=== PATIENT | female | born 1965 | race African-American/Black ===

== ENCOUNTER 2017-01-09 08:04 | Emergency (ER) | payer OTHER, BC ==
[2017-01-09] MEDS ORDERED: LORazepam 2 MG/ML SDV VIAL ONE (08:13)
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
[2017-01-09] MEDS ORDERED: morphine CARPU-JECT 10 MG/1 ML DISP.SYRIN ONE (08:24)
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
[2017-01-09 08:33] VITALS: TEMP 97; BMI 29.0
[2017-01-09] MEDS ORDERED: morphine CARPU-JECT 10 MG/1 ML DISP.SYRIN IVPUSH ONE ×2 (08:47→09:29)
[2017-01-09] MEDS: LORAZEPAM CARPU-JECT 2 MG/ML DISP.SYRIN IVPUSH ONE ×2 (08:50→10:42)
[2017-01-09 09:16] LABS: BASOPHIL 1.2 % (0-2.0); EOSINOPHIL 3.1 % (0-4.5); MCH 30.6 pg (25.7-33.7); MEAN CELL VOLUME 89.9 fl (80-96); MEAN PLT VOLUME 9.4 fl (7.5-11.1); PLATELET COUNT 248 K/MM3 (134-434); RDW 13.5 % (11.6-15.6); WHITE BLOOD COUNT 6.3 K/mm3 (4.0-10.0)
[2017-01-09 09:22] LABS: ALBUMIN 3.7 g/dl (3.4-5.0); ANION GAP 13 (8-16); BILIRUBIN,TOTAL 0.5 mg/dL (0.2-1.0); CALCIUM 9.4 mg/dL (8.5-10.1); CO2 24 mmol/L (21-32); CREATININE 0.8 mg/dL (0.55-1.02); GLUCOSE,RANDOM 99 mg/dL (74-106); SGOT/AST 14 U/L (15-37); SGPT/ALT 17 U/L (12-78); TOT PROT 7.3 g/dl (6.4-8.2)
[2017-01-09 09:24] LABS: ALK PHOS 114 U/L (45-117); TROPONIN I < 0.02 ng/ml (0.00-0.05)
[2017-01-09 09:35] LABS: INR 1.12 (0.82-1.09); PROTHROMBIN TIME (PATIENT) 12.4 SEC (9.98-11.88)
[2017-01-09] MEDS ORDERED: LORAZEPAM CARPU-JECT 2 MG/ML DISP.SYRIN IM ONE (10:44)
[2017-01-09 10:49] VITALS: BP 139/99; PULSE 88
[2017-01-09] MEDS ORDERED: morphine CARPU-JECT 4 MG/1 ML DISP.SYRIN IVPUSH ONE (10:49)
[2017-01-09 10:53] LABS: URINE APPEARANCE CLEAR; URINE BILIRUBIN NEGATIVE (NEGATIVE); URINE BLOOD NEGATIVE (NEGATIVE); URINE COLOR COLORLESS; URINE GLUCOSE (UA) NEGATIVE (NEGATIVE); URINE KETONE NEGATIVE (NEGATIVE); URINE LEUK ESTERASE NEGATIVE (NEGATIVE); URINE NITRITE NEGATIVE (NEGATIVE); URINE PROTEIN NEGATIVE (NEGATIVE); URINE UROBILINOGEN NEGATIVE E.U./dl (0.2-1.0)
[2017-01-09] MEDS ORDERED: morphine CARPU-JECT 4 MG/1 ML DISP.SYRIN ONE (10:53)
--- NOTE | 2017-01-10 14:19 | EKG ---
Test Reason : Blood Pressure : / mmHG Vent. Rate : 099 BPM Atrial Rate : 099 BPM P-R Int : 132 ms QRS Dur : 080 ms QT Int : 366 ms P-R-T Axes : 059 -02 006 degrees QTc Int : 469 ms NORMAL SINUS RHYTHM NONSPECIFIC T WAVE ABNORMALITY ABNORMAL ECG WHEN COMPARED WITH ECG OF 28-NOV-2015 13:54, T WAVE VARIATION Confirmed by MARTIN SPENCE MD ([id number]) on 01/10/2017 2:19:19 PM Referred By: Confirmed By:MARTIN SPENCE MD
== END 2017-01-09 12:01 | disposition home or self-care (01) ==
LOC: JER 08:04
PROC: 3E033NZ Introduction of Analgesics, Hypnotics, Sedatives into Peripheral Vein, Percutaneous Approach (ICD-10-PCS; principal; 2017-01-09)
PROC: 3E023NZ Introduction of Analgesics, Hypnotics, Sedatives into Muscle, Percutaneous Approach (ICD-10-PCS; 2017-01-09)
DX: M62.838 Other muscle spasm (principal); T14.8 Other injury of unspecified body region; V43.62XA Car passenger injured in collision with other type car in traffic accident, initial encounter; Y93.89 Activity, other specified; Y92.410 Unspecified street and highway as the place of occurrence of the external cause; Z85.3 Personal history of malignant neoplasm of breast; F41.9 Anxiety disorder, unspecified; G89.29 Other chronic pain; Z87.891 Personal history of nicotine dependence
CPT/HCPCS: 36415; 70450-TC; 71260-TC; 72125-TC; 73030-TC-RT; 74177-TC; 80053; 81003; 82550; 82553; 84484; 84703; 85025; 85610; 86850; 86900; 86901; 93005; 93010; 99284-25

== ENCOUNTER 2017-06-08 09:19 | Inpatient (IN) | payer OTHER ==
[2017-06-08 09:25] VITALS: BMI 29.7
[2017-06-08 09:51] LABS: BASOPHIL 1.2 % (0-2.0); EOSINOPHIL 2.1 % (0-4.5); MCH 29.6 pg (25.7-33.7); MCHC 33.2 g/dl (32.0-36.0); MEAN CELL VOLUME 89.1 fl (80-96); NEUTROPHILS 45.9 % (42.8-82.8); PLATELET COUNT 347 K/MM3 (134-434); RDW 14.3 % (11.6-15.6); WHITE BLOOD COUNT 10.9 K/mm3 (4.0-10.0)
[2017-06-08] MEDS ORDERED: morphine SULFATE 4 MG/ML VIAL IVPUSH ONE (10:04)
[2017-06-08] MEDS ORDERED: morphine CARPU-JECT 10 MG/1 ML DISP.SYRIN ONE (10:05)
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
[2017-06-08] MEDS ORDERED: SODIUM CHLORIDE 0.9% 1000 ML INFUS.BAG IV ONE (10:46)
--- NOTE | 2017-06-08 10:46 | PDOC ---
Attending Attestation - Resident Resident Name: Malcolm Ham - HPI HPI: 06/08/17 11:29 Pt presents to the ED complaining of severe pain in her R great toe that radiates to her leg. Also complaining of nausea, vomiting and profuse watery diarrhea. patient was seen by her PMD for toe pain and told that she had gout, started on colchicine. The diarrhea and nausea began after the colchicine. Denies fevers. Also complaining of shortness of breath. Patient has a long standing history of anxiety and fibromyalgia. - Physicial Exam PE: 06/08/17 11:59 Agree with residents exam. Foot shows no signs of infection. Patient is mildly tachycardic and tachypneic. - Medical Decision Making 06/08/17 12:01 Patient presents to the ED complaining of pain that is centered in her great toe but that radiates to her entire leg. Pain has been present for several days but became acutely worse today. Also complains of nausea and diarrhea after starting colchicine that may be secondary to impaired microtubule function. PAtient has a longstanding history of anxiety, and her chest symptoms may be secondary to anxiety, but she is tachycardic and has a history of malignancy. Will check d dimer to evaluate for DVT/PE. Will reassess. <Gris Herron - Last Filed: 06/08/17 11:29> - Medical Decision Making 06/08/17 13:[address] Kumar. [phone] <Judy Kelley - Last Filed: 06/08/17 13:46>
[2017-06-08 11:44] LABS: ALBUMIN 4.4 g/dl (3.4-5.0); ANION GAP 16 (8-16); BILIRUBIN,TOTAL 0.7 mg/dL (0.2-1.0); CO2 17 mmol/L (21-32); GLUCOSE,RANDOM 86 mg/dL (74-106); SGOT/AST 25 U/L (15-37); SGPT/ALT 26 U/L (12-78); TOT PROT 8.9 g/dl (6.4-8.2)
[2017-06-08 11:45] LABS: ALK PHOS 118 U/L (45-117)
[2017-06-08] MEDS ORDERED: SODIUM CHLORIDE 500 ML IV STA (13:54)
[2017-06-08] MEDS: predniSONE 20 MG TABLET (UD) PO SCH (15:26)
--- NOTE | 2017-06-08 17:21 | EKG ---
Test Reason : Blood Pressure : / mmHG Vent. Rate : 101 BPM Atrial Rate : 101 BPM P-R Int : 112 ms QRS Dur : 088 ms QT Int : 372 ms P-R-T Axes : 066 026 064 degrees QTc Int : 482 ms POOR DATA QUALITY, INTERPRETATION MAY BE ADVERSELY AFFECTED SINUS TACHYCARDIA POSSIBLE LEFT ATRIAL ENLARGEMENT LEFT VENTRICULAR HYPERTROPHY CANNOT RULE OUT SEPTAL INFARCT , AGE UNDETERMINED ABNORMAL ECG WHEN COMPARED WITH ECG OF 09-JAN-2017 08:50, NONSPECIFIC T WAVE ABNORMALITY NO LONGER EVIDENT IN INFERIOR LEADS NONSPECIFIC T WAVE ABNORMALITY NO LONGER EVIDENT IN ANTERIOR LEADS Confirmed by EMIR ALANIS MD ([id number]) on 06/08/2017 5:21:29 PM Referred By: Confirmed By:EMIR ALANIS MD
[2017-06-08] MEDS: SODIUM CHLORIDE 0.45% 1,000 ML IV SCH (17:45)
[2017-06-08] MEDS: oxyCODONE HCL 5 MG TABLET PO PRN (19:56)
[2017-06-08] MEDS: ACETAMINOPHEN 325 MG TABLET (FP) PO PRN (19:57)
[2017-06-08] MEDS: RANITIDINE HCL 150 MG TABLET (FP) PO SCH (21:53)
[2017-06-08] MEDS: diphenhydrAMINE HCL 25 MG CAPSULE (FP) PO PRN (21:53)
[2017-06-09] MEDS: SODIUM CHLORIDE 0.45% 1,000 ML IV SCH ×2 (05:41→13:44)
[2017-06-09] MEDS: oxyCODONE HCL 5 MG TABLET PO PRN ×2 (08:30→19:01)
[2017-06-09] MEDS: ACETAMINOPHEN 325 MG TABLET (FP) PO PRN ×2 (08:30→19:00)
[2017-06-09] MEDS ORDERED: PT OWN MED DRAWER 7, Y5N ONE (10:10)
[2017-06-09] MEDS: predniSONE 20 MG TABLET (UD) PO SCH (10:14)
[2017-06-09] MEDS: RANITIDINE HCL 150 MG TABLET (FP) PO SCH ×2 (10:15→21:17)
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
[2017-06-09] MEDS: diphenhydrAMINE HCL 25 MG CAPSULE (FP) PO PRN (10:20)
[2017-06-09] MEDS ORDERED: diphenhydrAMINE HCL 25 MG CAPSULE (FP) PO ONE (11:45)
[2017-06-09] MEDS: VENLAFAXINE HCL 150 MG E.R. CAPSULE PO SCH (12:36)
[2017-06-09 18:15] LABS: BASOPHIL 0.4 % (0-2.0); EOSINOPHIL 0.1 % (0-4.5); MCH 29.7 pg (25.7-33.7); MCHC 33.3 g/dl (32.0-36.0); MEAN CELL VOLUME 89.1 fl (80-96); MEAN PLT VOLUME 9.3 fl (7.5-11.1); NEUTROPHILS 81.4 % (42.8-82.8); PLATELET COUNT 277 K/MM3 (134-434); RDW 14.1 % (11.6-15.6); WHITE BLOOD COUNT 8.5 K/mm3 (4.0-10.0)
[2017-06-09 18:48] LABS: ALBUMIN 3.5 g/dl (3.4-5.0); ALK PHOS 108 U/L (45-117); ANION GAP 8 (8-16); BILIRUBIN,TOTAL 0.3 mg/dL (0.2-1.0); CALCIUM 9.1 mg/dL (8.5-10.1); CO2 24 mmol/L (21-32); CREATININE 0.7 mg/dL (0.55-1.02); GLUCOSE,RANDOM 136 mg/dL (74-106); SGOT/AST 13 U/L (15-37); SGPT/ALT 24 U/L (12-78); TOT PROT 7.2 g/dl (6.4-8.2)
[2017-06-10] MEDS: SODIUM CHLORIDE 0.45% 1,000 ML IV SCH ×4 (00:26→20:24)
[2017-06-10] MEDS: ACETAMINOPHEN 325 MG TABLET (FP) PO PRN ×4 (01:39→22:02)
[2017-06-10] MEDS: oxyCODONE HCL 5 MG TABLET PO PRN ×4 (01:40→22:01)
[2017-06-10] MEDS ORDERED: PT OWN MED DRAWER 7, Y5N ONE (10:43)
[2017-06-10] MEDS: predniSONE 20 MG TABLET (UD) PO SCH (10:46)
[2017-06-10] MEDS: VENLAFAXINE HCL 150 MG E.R. CAPSULE PO SCH (10:47)
[2017-06-10] MEDS: RANITIDINE HCL 150 MG TABLET (FP) PO SCH ×2 (10:48→22:02)
[2017-06-10] MEDS: ENOXAPARIN NA (PORCINE) 40 MG/0.4 ML DISP.SYRIN SQ SCH (10:49)
--- NOTE | 2017-06-10 12:00 | PN ---
Progress Note (short form) - Note Progress Note: pt seen examined still having pain - feet slight improvement anxious no other issues renal function back to normal Vital Signs Temp 98.1 F 06/10/17 06:00 Pulse 77 06/10/17 06:00 Resp 20 06/10/17 06:00 BP 130/87 06/10/17 06:00 Pulse Ox 100 06/09/17 19:57 Intake & Output 06/09/17 06/10/17 06/10/17 23:59 11:59 23:59 Intake Total 950 1400 Balance 950 1400 Intake: IV 1200 1/2 Normal Saline 1,000 1200 ml @ 100 mls/hr IV ASDIR ON LICENSE OF [facility] Rx#:[id number] Oral 950 200 Other: Voiding Method Toilet # Unmeasured Voids Void 2 Active Medications Acetaminophen (Tylenol -) 325 mg PO Q4H PRN PRN Reason: PAIN Stop: 06/11/17 16:15 Last Admin: 06/10/17 08:42 Dose: 325 mg Diphenhydramine HCl (Benadryl -) 25 mg PO Q6H PRN PRN Reason: FOR ITCHING Last Admin: 06/09/17 10:20 Dose: 25 mg Enoxaparin Sodium (Lovenox -) 40 mg SQ DAILY ON LICENSE OF [facility] Last Admin: 06/10/17 10:49 Dose: 40 mg Sodium Chloride (1/2 Normal Saline) 1,000 mls @ 100 mls/hr IV ASDIR ANAT Last Admin: 06/10/17 09:45 Dose: 100 mls/hr Naproxen (Naprosyn -) 500 mg PO BID ON LICENSE OF [facility] Oxycodone HCl (Roxicodone -) 5 mg PO Q4H PRN PRN Reason: PAIN Last Admin: 06/10/17 08:40 Dose: 5 mg Prednisone (Deltasone -) 40 mg PO DAILY ON LICENSE OF [facility] Last Admin: 06/10/17 10:46 Dose: 40 mg Ranitidine HCl (Zantac -) 150 mg PO BID ON LICENSE OF [facility] Last Admin: 06/10/17 10:48 Dose: 150 mg Venlafaxine HCl (Effexor Xr -) 150 mg PO DAILY ON LICENSE OF [facility] Last Admin: 06/10/17 10:47 Dose: 150 mg CBC, BMP 06/09/17 18:06 06/09/17 18:06 Physical Examination Constitutional: Yes: No Distress, Anxious Eyes: Yes: Conjunctiva Clear Neck: Yes: Supple Cardiovascular: Yes: Regular Rate and Rhythm Respiratory: Yes: CTA Bilaterally Gastrointestinal: Yes: Soft Musculoskeletal: Yes: Other (both great toes--- tender to touch- but decreased ---scars present from previous surgeries on both great toes) Edema: No Peripheral Pulses WNL: Yes Neurological: Yes: Alert Imaging - Results X-ray: Report Reviewed Ultrasound: Report Reviewed EKG: Report Reviewed Problem List - Problems (1) FROY (acute kidney injury) Code(s): N17.9 - ACUTE KIDNEY FAILURE, UNSPECIFIED (2) Diarrhea due to drug Code(s): K52.1 - TOXIC GASTROENTERITIS AND COLITIS (3) Anxiety Code(s): F41.9 - ANXIETY DISORDER, UNSPECIFIED Assessment/Plan discussed with patient Diarrhea likely due to colchicine--Held Continue fluids Monitor labs--- today's labs pending ct better Pain control start on naproxyn with caution Benadryl for itching DVT prophylaxis Will follow anticipate d/c tomorrow if better Problem List - Problems (1) FROY (acute kidney injury) Code(s): N17.9 - ACUTE KIDNEY FAILURE, UNSPECIFIED (2) Diarrhea due to drug Code(s): K52.1 - TOXIC GASTROENTERITIS AND COLITIS (3) Anxiety Code(s): F41.9 - ANXIETY DISORDER, UNSPECIFIED
[2017-06-10] MEDS ORDERED: COLCHICINE 0.6 MG TABLET (FP) PO ONE (12:01)
[2017-06-10] MEDS: NAPROXEN 500 MG TABLET (FP) PO SCH ×2 (15:09→22:03)
[2017-06-10 19:51] LABS: MCH 29.7 pg (25.7-33.7); MCHC 33.4 g/dl (32.0-36.0); MEAN CELL VOLUME 89.1 fl (80-96); MEAN PLT VOLUME 9.8 fl (7.5-11.1); RDW 13.8 % (11.6-15.6); WHITE BLOOD COUNT 8.5 K/mm3 (4.0-10.0)
[2017-06-10 20:18] LABS: ALBUMIN 3.6 g/dl (3.4-5.0); ALK PHOS 99 U/L (45-117); ANION GAP 8 (8-16); BILIRUBIN,TOTAL 0.2 mg/dL (0.2-1.0); CALCIUM 8.7 mg/dL (8.5-10.1); CO2 24 mmol/L (21-32); CREATININE 0.8 mg/dL (0.55-1.02); GLUCOSE,RANDOM 138 mg/dL (74-106); SGOT/AST 13 U/L (15-37); SGPT/ALT 24 U/L (12-78); TOT PROT 6.9 g/dl (6.4-8.2)
[2017-06-10 20:44] LABS: PLATELET COMMENT2 FEW LARGE PLTS; PLATELET ESTIMATE ADEQUATE (NORMAL)
[2017-06-11] MEDS: oxyCODONE HCL 5 MG TABLET PO PRN ×2 (05:49→10:39)
[2017-06-11] MEDS: ACETAMINOPHEN 325 MG TABLET (FP) PO PRN ×2 (05:49→10:41)
[2017-06-11 06:01] VITALS: TEMP 98
[2017-06-11] MEDS: SODIUM CHLORIDE 0.45% 1,000 ML IV SCH (06:38)
[2017-06-11 08:47] LABS: BASOPHIL 0.8 % (0-2.0); EOSINOPHIL 0.7 % (0-4.5); MCH 29.8 pg (25.7-33.7); MCHC 33.6 g/dl (32.0-36.0); MEAN CELL VOLUME 88.6 fl (80-96); MEAN PLT VOLUME 8.7 fl (7.5-11.1); PLATELET COUNT 267 K/MM3 (134-434); RDW 13.8 % (11.6-15.6); WHITE BLOOD COUNT 9.1 K/mm3 (4.0-10.0)
[2017-06-11 09:12] LABS: ANION GAP 9 (8-16); CALCIUM 8.8 mg/dL (8.5-10.1); CO2 28 mmol/L (21-32); CREATININE 0.6 mg/dL (0.55-1.02); GLUCOSE,RANDOM 93 mg/dL (74-106)
[2017-06-11] MEDS ORDERED: PT OWN MED DRAWER 7, Y5N ONE (09:26)
[2017-06-11] MEDS: predniSONE 20 MG TABLET (UD) PO SCH (09:29)
[2017-06-11] MEDS: VENLAFAXINE HCL 150 MG E.R. CAPSULE PO SCH (09:30)
[2017-06-11] MEDS: RANITIDINE HCL 150 MG TABLET (FP) PO SCH (09:30)
[2017-06-11] MEDS: ENOXAPARIN NA (PORCINE) 40 MG/0.4 ML DISP.SYRIN SQ SCH (09:30)
[2017-06-11] MEDS: NAPROXEN 500 MG TABLET (FP) PO SCH (09:31)
--- NOTE | 2017-06-11 12:04 | DS ---
Physical Examination Vital Signs: Vital Signs Temperature 98 F 06/11/17 06:00 Pulse Rate 75 06/11/17 06:00 Respiratory Rate 20 06/11/17 06:00 Blood Pressure 148/102 06/11/17 06:00 O2 Sat by Pulse Oximetry (%) 100 06/10/17 21:00 Findings/Remarks: feels better decreased pain walks in hallway Constitutional: Yes: No Distress, Calm Cardiovascular: Yes: Regular Rate and Rhythm Respiratory: Yes: CTA Bilaterally Gastrointestinal: Yes: Soft Musculoskeletal: Yes: Other (decreased tenderness) Neurological: Yes: Alert Labs: CBC, BMP 06/11/17 07:34 Discharge Summary Reason For Visit: ACUTE KIDNEY INJURY,DEHYDRATION Current Active Problems FROY (acute kidney injury) (Acute) Anxiety (Acute) Diarrhea due to drug (Acute) Hospital Course: admitted for acute gout flare/ arf had severe diarrhea with colchicine treated with fluids/ pain meds restarted nsaid for pain. better-- stable for d/c f/u in office in one week. meds reconcilled . prescribed as needed. discussed with pt in detail Condition: Improved - Instructions Referrals: Hilary Kumar MD [Primary Care Provider] - - Home Medications Comprehensive Discharge Medication List: Ambulatory Orders Esomeprazole Magnesium [Nexium 24Hr] 20 mg PO DAILY 01/09/17 Venlafaxine HCl ER [Effexor Xr -] 150 mg PO DAILY 01/09/17 Alprazolam [Xanax] 0.5 mg PO TID PRN 06/08/17 Acetaminophen [Tylenol .Regular Strength -] 325 mg PO Q4H PRN #0 tablet Meloxicam [Mobic] 15 mg PO DAILY PRN #30 tab 06/11/17 Prednisone [Deltasone -] 20 mg PO DAILY #6 tablet 06/11/17
[2017-06-11 12:20] VITALS: BP 133/93; PULSE 90
== END 2017-06-11 14:54 | disposition home or self-care (01) | DRG 394 ==
LOC: JER 09:19 → JERBED 13:53 → J6S 18:15 → OBSVTOIN 06-09 10:15
PROVIDERS: ADMIT Internal Medicine; ATTEND Internal Medicine
DX: K52.1 Toxic gastroenteritis and colitis (principal); N17.9 Acute kidney failure, unspecified; K21.9 Gastro-esophageal reflux disease without esophagitis; M10.9 Gout, unspecified; F41.9 Anxiety disorder, unspecified; E86.0 Dehydration; I10 Essential (primary) hypertension; T50.4X5A Adverse effect of drugs affecting uric acid metabolism, initial encounter; Z78.0 Asymptomatic menopausal state; Z85.41 Personal history of malignant neoplasm of cervix uteri; Z85.3 Personal history of malignant neoplasm of breast
CPT/HCPCS: 36415; 73660-TC; 76775-TC; 76856-TC; 80048; 80053; 84550; 84703; 85025; 85027; 85379; 85651; 93005; 93010; 93970-TC; 99284-25; G0378

== ENCOUNTER 2017-06-12 19:24 | Inpatient (IN) | payer OTHER ==
[2017-06-12 19:27] VITALS: BMI 29.7
[2017-06-12] MEDS ORDERED: SODIUM CHLORIDE 1,000 ML IV STA ×2 (19:39→22:25)
[2017-06-12] MEDS ORDERED: HYDROmorphone HCL CARPU-JECT 1 MG/1 ML DISP.SYRIN IVPUSH ONE ×2 (19:39→22:25)
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
[2017-06-12] MEDS ORDERED: HYDROmorphone HCL CARPU-JECT 1 MG/1 ML DISP.SYRIN ONE ×2 (19:49→23:05)
[2017-06-12] MEDS ORDERED: ACETAMINOPHEN 1000 MG/100 ML VIAL (NON FORMULARY) IVPB ONE (20:34)
[2017-06-12] MEDS ORDERED: ACETAMINOPHEN INJECTION 100 ML IVPB ONE (20:43)
[2017-06-12 21:38] LABS: BASOPHIL 1.1 % (0-2.0); EOSINOPHIL 1.1 % (0-4.5); MCH 29.8 pg (25.7-33.7); MCHC 33.5 g/dl (32.0-36.0); MEAN CELL VOLUME 88.8 fl (80-96); MEAN PLT VOLUME 8.8 fl (7.5-11.1); NEUTROPHILS 45.9 % (42.8-82.8); PLATELET COUNT 245 K/MM3 (134-434); WHITE BLOOD COUNT 10.6 K/mm3 (4.0-10.0)
[2017-06-12 21:42] LABS: URINE APPEARANCE SLCLOUDY; URINE BILIRUBIN NEGATIVE (NEGATIVE); URINE BLOOD NEGATIVE (NEGATIVE); URINE COLOR LTYELLOW; URINE GLUCOSE (UA) NEGATIVE (NEGATIVE); URINE KETONE NEGATIVE (NEGATIVE); URINE NITRITE NEGATIVE (NEGATIVE); URINE PROTEIN NEGATIVE (NEGATIVE); URINE UROBILINOGEN NEGATIVE mg/dL (0.2-1.0)
[2017-06-12 22:02] LABS: ALBUMIN 3.5 g/dl (3.4-5.0); ALK PHOS 89 U/L (45-117); ANION GAP 9 (8-16); BILIRUBIN,TOTAL 0.6 mg/dL (0.2-1.0); CALCIUM 8.4 mg/dL (8.5-10.1); CO2 25 mmol/L (21-32); CREATININE 0.7 mg/dL (0.55-1.02); GLUCOSE,RANDOM 82 mg/dL (74-106); SGOT/AST 16 U/L (15-37); SGPT/ALT 24 U/L (12-78); TOT PROT 7.1 g/dl (6.4-8.2)
[2017-06-12 22:03] LABS: CPK 96 IU/L (26-192); TROPONIN I < 0.02 ng/ml (0.00-0.05)
[2017-06-12 22:42] LABS: URINE LEUK ESTERASE 1+ (NEGATIVE)
[2017-06-12 23:10] LABS: URINE BACTERIA FEW /hpf (NEGATIVE); URINE RBC 0-2 /hpf (0-3)
[2017-06-13] MEDS ORDERED: HYDROmorphone HCL CARPU-JECT 1 MG/1 ML DISP.SYRIN IVPB ONE (01:28)
[2017-06-13] MEDS ORDERED: SODIUM CHLORIDE 1,000 ML IV SCH (01:45)
[2017-06-13] MEDS ORDERED: HYDROmorphone HCL CARPU-JECT 1 MG/1 ML DISP.SYRIN ONE (02:42)
[2017-06-13] MEDS ORDERED: morphine CARPU-JECT 2 MG/1 ML DISP.SYRIN IVPUSH SCH (09:15)
[2017-06-13] MEDS ORDERED: morphine CARPU-JECT 2 MG/1 ML DISP.SYRIN IVPUSH ONE (09:15)
[2017-06-13] MEDS ORDERED: morphine CARPU-JECT 8 MG/1 ML DISP.SYRIN ONE (09:26)
[2017-06-13] MEDS ORDERED: morphine CARPU-JECT 8 MG/1 ML DISP.SYRIN IVPUSH PRN (10:40)
[2017-06-13] MEDS ORDERED: morphine CARPU-JECT 10 MG/1 ML DISP.SYRIN ONE (13:16)
[2017-06-13] MEDS ORDERED: DEXTROSE 5%-0.45% SALINE 1,000 ML IV SCH (13:30)
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
[2017-06-13] MEDS: morphine CARPU-JECT 8 MG/1 ML DISP.SYRIN IVPUSH PRN ×3 (13:47→22:52)
--- NOTE | 2017-06-13 13:50 | EKG ---
Test Reason : Blood Pressure : / mmHG Vent. Rate : 081 BPM Atrial Rate : 081 BPM P-R Int : 134 ms QRS Dur : 090 ms QT Int : 412 ms P-R-T Axes : 043 -08 050 degrees QTc Int : 478 ms NORMAL SINUS RHYTHM INCOMPLETE LEFT BUNDLE BRANCH BLOCK MODERATE VOLTAGE CRITERIA FOR LVH, MAY BE NORMAL VARIANT NONSPECIFIC T WAVE ABNORMALITY RSR' V1-V2 SMALL Q WAVE IN V2, CANNOT EXCLUDEVAN ANTEROSEPTAL WALL ME OF INDETERMINATE AGE PROLONGED QT ABNORMAL ECG WHEN COMPARED WITH ECG OF 08-JUN-2017 09:40, CHANGES MENTIONED ABOVE. NONSPECIFIC ST AND T WAVE ABNORMALITY CLINICAL CORRELATION IS RECOMMENDED Confirmed by ANGELA DAY MD ([id number]) on 06/13/2017 1:50:30 PM Referred By: Confirmed By:ANGELA DAY MD
--- NOTE | 2017-06-13 18:16 | CON.GI ---
Consult Consult Specialty:: GI Referred by:: Dr Bustos Reason for Consultation:: Abdominal pain - History of Present Illness Chief Complaint: abdominal pain History of Present Illness: 51 F with h/o breast ca s/p R mastectomy and subsequent breast reconstruction, Cervical ca, colonic inertia with subsequent total colectomy with ileo-rectal anastomosis, mesenteric ischemia 2015, now states that after having a large BM yesteday she developed acute LUQ pain which became worse over time resulting in her ER visit. - History Source History Provided By: Patient Limitations to Obtaining History: No Limitations - Past Medical History Cardio/Vascular: Yes: HTN - Past Surgical History Past Surgical History: Yes: Colectomy, Mastectomy - Alcohol/Substance Use Hx Alcohol Use: No - Smoking History Smoking history: Never smoked Have you smoked in the past 12 months: No Aproximately how many cigarettes per day: 0 If you are a former smoker, when did you quit?: 20 years Home Medications - Allergies Allergies/Adverse Reactions: Allergies Allergy/AdvReac Type Severity Reaction Status Date / Time ketorolac tromethamine Allergy Intermediate Rash Verified 06/12/17 19:26 [From Toradol] colchicine Allergy Verified 06/12/17 19:26 - Home Medications Home Medications: Ambulatory Orders Esomeprazole Magnesium [Nexium 24Hr] 20 mg PO DAILY 01/09/17 Venlafaxine HCl ER [Effexor Xr -] 150 mg PO DAILY 01/09/17 Alprazolam [Xanax] 0.5 mg PO TID PRN 06/08/17 Acetaminophen [Tylenol .Regular Strength -] 325 mg PO Q4H PRN #0 tablet Meloxicam [Mobic] 15 mg PO DAILY PRN #30 tab 06/11/17 Prednisone [Deltasone -] 20 mg PO DAILY #6 tablet 06/11/17 Physical Exam-GI Vital Signs: Vital Signs Temperature 98.6 F 06/13/17 16:55 Pulse Rate 79 06/13/17 16:55 Respiratory Rate 20 06/13/17 16:55 Blood Pressure 117/97 06/13/17 16:55 O2 Sat by Pulse Oximetry (%) 100 06/13/17 10:00 Constitutional: Yes: Well Nourished, Calm HENT: Yes: Normocephalic Cardiovascular: Yes: Regular Rate and Rhythm Respiratory: Yes: CTA Bilaterally Gastrointestinal Inspection: Yes: WNL ...Auscultate: Yes: Other (high pitched bowel sounds) ...Palpate: Yes: Soft, Tenderness (Mostly left sided) ...Percussion: Yes: Tympanitic Labs: CBC, BMP 06/12/17 21:30 06/12/17 21:30 Hepatic Panel Total Bilirubin 0.6 mg/dL (0.2-1.0) D 06/12/17 21:30 AST 16 U/L (15-37) D 06/12/17 21:30 ALT 24 U/L (12-78) 06/12/17 21:30 Alkaline Phosphatase 89 U/L (45-117) 06/12/17 21:30 Albumin 3.5 g/dl (3.4-5.0) 06/12/17 21:30 Imaging - Results Cat Scan: Report Reviewed (As noted. Ileus vs fecal impaction with partial obstruction) Assessment/Plan Patient with above history now with acute abdominal pain and elevated lipase. Lipase possibly from bowel. As pain began after large BM, unlikely impaction Poss ischemic event as she has a h/o mesenteric ischemia Rec IVF, AbRx. Clear liquids for now Check lactic acid Event seems to be resolving but needs to be watched
--- NOTE | 2017-06-13 18:24 | CON.GI ---
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 by Dr Shrestha at [facility] 2010]was asked to be seen because of SBO. She was admitted on Jun 08-May because of diarrhea secondary to adverse of colchicine associated with FROY. She received morphine and oxycodone during the admission. She was doing well until today when she developed severe abdominal pain associated with 5 day history of constipation. Catscan revealed patyial SBO with fecal impaction. - Past Medical History Cardio/Vascular: Yes: HTN - Alcohol/Substance Use Hx Alcohol Use: No - Smoking History Smoking history: Never smoked Have you smoked in the past 12 months: No Aproximately how many cigarettes per day: 0 If you are a former smoker, when did you quit?: 20 years Home Medications - Allergies Allergies/Adverse Reactions: Allergies Allergy/AdvReac Type Severity Reaction Status Date / Time ketorolac tromethamine Allergy Intermediate Rash Verified 06/12/17 19:26 [From Toradol] colchicine Allergy Verified 06/12/17 19:26 - Home Medications Home Medications: Ambulatory Orders Esomeprazole Magnesium [Nexium 24Hr] 20 mg PO DAILY 01/09/17 Venlafaxine HCl ER [Effexor Xr -] 150 mg PO DAILY 01/09/17 Alprazolam [Xanax] 0.5 mg PO TID PRN 06/08/17 Acetaminophen [Tylenol .Regular Strength -] 325 mg PO Q4H PRN #0 tablet Meloxicam [Mobic] 15 mg PO DAILY PRN #30 tab 06/11/17 Prednisone [Deltasone -] 20 mg PO DAILY #6 tablet 06/11/17 Physical Exam-GI Vital Signs: Vital Signs Temperature 98.6 F 06/13/17 16:55 Pulse Rate 79 06/13/17 16:55 Respiratory Rate 20 06/13/17 16:55 Blood Pressure 117/97 06/13/17 16:55 O2 Sat by Pulse Oximetry (%) 100 06/13/17 10:00 Constitutional: Yes: Obese Eyes: Yes: Conjunctiva Clear HENT: Yes: Atraumatic Neck: Yes: Supple Cardiovascular: Yes: Regular Rate and Rhythm Respiratory: Yes: CTA Bilaterally Gastrointestinal Inspection: Yes: Distention ...Palpate: Yes: Soft, Tenderness (--diffuse). No: Firm/Rigid, Guarding, Hepatomegaly, Mass, Pulsatile Mass, Splenomegaly ...Percussion: Yes: Tympanitic Labs: CBC,CMP WBC 10.6 K/mm3 (4.0-10.0) H 06/12/17 21: RBC 4.52 M/mm3 (3.60-5.2) 06/12/17 21:30 Hgb 13.5 GM/dL (10.7-15.3) 06/12/17 21:30 Hct 40.1 % (32.4-45.2) 06/12/17: MCV 88.8 fl (80-96) 06/12/17 21: MCH 29.8 pg (25.7-33.7) 06/12/17: MCHC 33.5 g/dl (32.0-36.0) 06/12/17: RDW 14.0 % (11.6-15.6) 06/12/17 21: Plt Count 245 K/MM3 (134-434) 06/12/17 21: MPV 8.8 fl (7.5-11.1) 06/12/17 21: Neutrophils % 45.9 % (42.8-82.8) 06/12/17 21: Lymphocytes % 45.8 % (8-40) H 06/12/17: Monocytes % 6.1 % (3.8-10.2) D 06/12/17: Eosinophils % 1.1 % (0-4.5) 06/12/17: Basophils % 1.1 % (0-2.0) 06/12/17 21:30 Sodium 139 mmol/L (136-145) 06/12/17 21:30 Potassium 3.6 mmol/L (3.5-5.1) 06/12/17 21:30 Chloride 105 mmol/L (98-107) 06/12/17 21:30 Carbon Dioxide 25 mmol/L (21-32) 06/12/17 21:30 Anion Gap 9 (8-16) 06/12/17 21: BUN 16 mg/dL (7-18) D 10/30/17 21:30 Creatinine 0.7 mg/dL (0.55-1.02) 06/12/17 21:30 Creat Clearance w eGFR > 60 (>60) 06/12/17 21:30 Random Glucose 82 mg/dL (74-106) 06/12/17 21:30 Lactic Acid 1.5 mmol/L (0.4-2.0) 06/12/17 21: Calcium 8.4 mg/dL (8.5-10.1) L 06/12/17 21:30 Total Bilirubin 0.6 mg/dL (0.2-1.0) D 06/12/17 21:30 AST 16 U/L (15-37) D 06/12/17 21:30 ALT 24 U/L (12-78) 06/12/17 21:30 Alkaline Phosphatase 89 U/L (45-117) 06/12/17 21:30 Creatine Kinase 96 IU/L (26-192) 06/12/17 21:30 Troponin I < 0.02 ng/ml (0.00-0.05) 06/12/17 21:30 Total Protein 7.1 g/dl (6.4-8.2) 06/12/17 21:30 Albumin 3.5 g/dl (3.4-5.0) 06/12/17: Lipase 943 U/L (73-393) H 06/12/17 21:30 Serum , Qual Negative 06/12/17 21:30 Assessment/Plan A>1) abdominal pain rule secondary to ileus vs SBO vs opiod induced constipation R> keep NPO fleet enemas as ordered to relieve the fecal impaction FUA
[2017-06-13] MEDS ORDERED: SODIUM PHOSPHATE/NA BIPHOS 133 ML ENEMA RC SCH (18:30)
[2017-06-13] MEDS: LEVOFLOXACIN 500 MG IVPB 100 ML IVPB SCH (18:55)
[2017-06-13] MEDS ORDERED: SODIUM PHOSPHATE/NA BIPHOS 133 ML ENEMA PR ONE (19:00)
[2017-06-13] MEDS: SODIUM PHOSPHATE/NA BIPHOS 133 ML ENEMA RC SCH (23:00)
[2017-06-14] MEDS: SODIUM PHOSPHATE/NA BIPHOS 133 ML ENEMA RC SCH ×2 (03:00→07:27)
[2017-06-14 07:34] VITALS: BP 133/92; PULSE 80; TEMP 98.2
[2017-06-14 08:24] LABS: BASOPHIL 1.1 % (0-2.0); EOSINOPHIL 5.8 % (0-4.5); MCH 29.5 pg (25.7-33.7); MCHC 33.1 g/dl (32.0-36.0); MEAN CELL VOLUME 89.3 fl (80-96); MEAN PLT VOLUME 9.1 fl (7.5-11.1); NEUTROPHILS 49.4 % (42.8-82.8); RDW 13.8 % (11.6-15.6); WHITE BLOOD COUNT 6.7 K/mm3 (4.0-10.0)
[2017-06-14 09:18] LABS: ALBUMIN 3.4 g/dl (3.4-5.0); ALK PHOS 89 U/L (45-117); ANION GAP 7 (8-16); BILIRUBIN,TOTAL 0.8 mg/dL (0.2-1.0); CALCIUM 8.4 mg/dL (8.5-10.1); CO2 29 mmol/L (21-32); CREATININE 0.7 mg/dL (0.55-1.02); GLUCOSE,RANDOM 93 mg/dL (74-106); SGOT/AST 17 U/L (15-37); SGPT/ALT 27 U/L (12-78)
[2017-06-14] MEDS: LEVOFLOXACIN 500 MG IVPB 100 ML IVPB SCH (09:28)
[2017-06-14 09:30] LABS: PLATELET COMMENT2 NO CLOTTING DETECTED; PLATELET COUNT 234 K/MM3 (134-434); PLATELET ESTIMATE ADEQUATE (NORMAL)
[2017-06-14 09:50] LABS: AMYLASE 100 U/L (25-115)
[2017-06-14] MEDS ORDERED: ENOXAPARIN NA (PORCINE) 40 MG/0.4 ML DISP.SYRIN SQ SCH (10:00)
--- NOTE | 2017-06-14 10:14 | DS ---
Physical Examination Vital Signs: Vital Signs Temperature 98.2 F 06/14/17 07:33 Pulse Rate 80 06/14/17 07:33 Respiratory Rate 20 06/14/17 07:33 Blood Pressure 133/92 06/14/17 07:33 O2 Sat by Pulse Oximetry (%) 100 06/13/17 10:00 Labs: CBC, BMP 06/14/17 07:00 06/14/17 07:00 Discharge Summary Reason For Visit: INCREASED SERUM LIPASE LEVEL, ABDOMINAL PAIN Current Active Problems FROY (acute kidney injury) (Acute) Abdominal pain (Acute) Anxiety (Acute) Diarrhea due to drug (Acute) Elevated lipase (Acute) SBO (small bowel obstruction) (Acute) Hospital Course: pt signed out AMA prior to seeing me today. Admitted for SBO , ileus Condition: Guarded - Instructions Referrals: Hilary Kumar MD [Primary Care Provider] - Disposition: AGAINST MEDICAL ADVICE - Home Medications Comprehensive Discharge Medication List: Ambulatory Orders Esomeprazole Magnesium [Nexium 24Hr] 20 mg PO DAILY 01/09/17 Venlafaxine HCl ER [Effexor Xr -] 150 mg PO DAILY 01/09/17 Alprazolam [Xanax] 0.5 mg PO TID PRN 06/08/17 Acetaminophen [Tylenol .Regular Strength -] 325 mg PO Q4H PRN #0 tablet Meloxicam [Mobic] 15 mg PO DAILY PRN #30 tab 06/11/17 Prednisone [Deltasone -] 20 mg PO DAILY #6 tablet 06/11/17
--- NOTE | 2017-06-14 12:07 | CONSULT ---
Consult - text type - Consultation Consultation Note: Attempted to see patient, but she has already left AMA. Tera SOLIMAN
== END 2017-06-14 09:44 | disposition left against medical advice (07) | DRG 390 ==
LOC: JER 19:24 → JERBED 06-13 01:40 → J8W 06-13 16:20
PROVIDERS: ADMIT Internal Medicine; ATTEND Internal Medicine
DX: K56.609 Unspecified intestinal obstruction, unspecified as to partial versus complete obstruction (principal); K56.7 Ileus, unspecified; Z85.3 Personal history of malignant neoplasm of breast; F41.9 Anxiety disorder, unspecified; R74.8 Abnormal levels of other serum enzymes
CPT/HCPCS: 36415; 71020-TC; 74020-TC; 74177-TC; 80053; 81003; 81015; 82150; 82550; 83605; 83690; 84484; 84703; 85025; 93005; 93010; 99284-25

== ENCOUNTER 2018-05-27 07:50 | Emergency (ER) | payer BC ==
[2018-05-27 08:06] VITALS: BMI 31.4
[2018-05-27] MEDS ORDERED: ALBUTEROL SO4 2.5/IPRATROPIUM 0.5 INH SOL 3 ML VIAL.NEB. NEB ONE ×2 (08:09→08:15)
--- NOTE | 2018-05-27 08:13 | PDOC ---
History of Present Illness - General Chief Complaint: Pain Stated Complaint: PAIN Time Seen by Provider: 05/27/18 07:56 History Source: Patient Exam Limitations: No Limitations - History of Present Illness Initial Comments: 05/27/18 08:12 52 year old woman with hx of subtotal colectomy, breast cancer R mastectomy 3 years ago and fibromyalgia (on lyrica) , presents with 2 weeks of occipital headache that is described as throbbing and is worse in the AM and with bright lights, 2 days of nausea and LLQ abd pain, and cough productive of yellow/white phlegm and diarrhea that started this AM. Patient also reports that she has had muscle weakness in the bilateral thighs for 2 days and R axilla lymphadenopathy. She denies any recent contacts or recent travel, chest pain or any fevers at home. PMHX: as in HPI Meds: see below Allergies: Toradol, colchicine Tob: none Etoh: none Rec drugs: none PCP: José Past History - Past Medical History Allergies/Adverse Reactions: Allergies Allergy/AdvReac Type Severity Reaction Status Date / Time ketorolac tromethamine Allergy Intermediate Rash Verified 05/27/18 08:06 [From Toradol] colchicine Allergy Verified 05/27/18 08:06 Home Medications: Ambulatory Orders Venlafaxine HCl ER [Effexor Xr -] 150 mg PO DAILY 01/09/17 Oxycodone HCl/Acetaminophen [Percocet 5-325 mg Tablet] 1 - 2 tab PO Q4H #20 tablet MDD 12 11/06/17 Acetaminophen [Tylenol] 325 mg PO BID #14 capsule 05/27/18 Metoclopramide HCl [Reglan -] 10 mg PO TID #21 tablet 05/27/18 Pregabalin [Lyrica -] 150 mg PO DAILY 05/27/18 Cancer: Yes (rt breast,cervical ca) COPD: No - Surgical History Abdominal Surgery: (COLON SURGERY;SBO,MESENTERIC ISCHEMIA) - Suicide/Smoking/Psychosocial Hx Smoking Status: No Smoking History: Never smoked Have you smoked in the past 12 months: No Number of Cigarettes Smoked Daily: 0 If you are a former smoker, when did you quit?: 20 years Information on smoking cessation initiated: No Hx Alcohol Use: No Drug/Substance Use Hx: No Substance Use Type: None Hx Substance Use Treatment: No Review of Systems - Review of Systems Able to Perform ROS?: Yes Is the patient limited Setswana proficient: No Constitutional: No: Chills, Diaphoresis, Fever HEENTM: No: Blurred Vision, Double Vision, Tinnitus Respiratory: Yes: See HPI, Cough, Shortness of Breath. No: Wheezing Cardiac (ROS): No: Chest Pain, Palpitations, Chest Tightness ABD/GI: No: Constipated, Diarrhea, Nausea, Vomiting : No: Burning, Dysuria, Hematuria Musculoskeletal: No: Back Pain Neurological: Yes: See HPI, Headache. No: Numbness, Paresthesia, Tingling *Physical Exam - Vital Signs Last Vital Signs Temp Pulse Resp BP Pulse Ox 98.3 F 98 H 20 147/122 H 100 05/27/18 08:04 05/27/18 08:04 05/27/18 08:04 05/27/18 08:04 05/27/18 08:04 - Physical Exam Comments: 05/27/18 08:44 GENERAL: Awake, alert, and fully oriented, in no acute distress HEAD: No signs of trauma, normocephalic, atraumatic EYES: PERRLA, EOMI, sclera anicteric, conjunctiva clear ENT: Auricles normal inspection, hearing grossly normal, nares patent, oropharynx clear without exudates. Moist mucosa NECK: Normal ROM, supple, no lymphadenopathy, JVD, or masses LUNGS: No distress, speaks full sentences, clear to auscultation bilaterally HEART: Regular rate and rhythm, normal S1 and S2, no murmurs, rubs or gallops, peripheral pulses normal and equal bilaterally. ABDOMEN: Soft, + LLQ tender to palpation, normoactive bowel sounds. No guarding , no rebound. No masses EXTREMITIES : Normal inspection, Normal range of motion, no edema. No clubbing or cyanosis. + tender to touch on the R shoulder NEUROLOGICAL: Cranial nerves II through XII grossly intact. Normal speech, normal gait, no focal sensorimotor deficits SKIN: Warm, Dry, normal turgor, no rashes or lesions noted ED Treatment Course - LABORATORY CBC & Chemistry Diagram: 05/27/18 08:40 05/27/18 08:40 - RADIOLOGY Radiology Studies Ordered: Category Date Time Status CHEST X-RAY PORTABLE* [RAD] Stat Radiology 05/27/18 08:09 Ordered Medical Decision Making - Medical Decision Making 52 year old woman with hx of subtotal colectomy, breast cancer R mastectomy 3 years ago and fibromyalgia (on lyrica) , presents with 2 weeks of occipital headache that is described as throbbing and is worse in the AM, 2 days of nausea and LLQ abd pain, and cough productive of yellow/white phlegm and diarrhea that started this AM. Patient also reports that she has had muscle weakness in the bilateral thighs for 2 days and R axilla lymphadenopathy. She denies any recent contacts or recent travel, chest pain or any fevers at home. DDX including but not limited to: Cough: PNA vs viral URI Headache: metastasis vs migraine Muscleache: influenza vs fibromyalgia W/U: - cbc, cmp, blood cx, trop - EKG - CXR - ua, ucx TX: - reglan - tylenol - 1L NS - duoneb - dexamethasone ED Course: Patient evaluated short of breath and coughing at bedside. Duoneb started. 05/27/18 11:01 UA negative Lactic acid: 2.8 will repeat after NS completed 05/27/18 13:38 Repeat lactic acid: 1.7 Likely patient with initially elevated lactic acid 2/2 to hydration status. Patient advised to drink plenty of fluids. Given follow up to neurology for evaluation of headaches. Patient stable for discharge. Informed of all lab and imaging results. Given follow up instructions and strict return precautions. Patient expressed understanding and agrees to plan *DC/Admit/Observation/Transfer Diagnosis at time of Disposition: Headache, Viral syndrome - Discharge Dispostion Disposition: HOME Condition at time of disposition: Stable Decision to Admit order: No - Prescriptions Prescriptions: Acetaminophen [Tylenol] 325 mg PO BID #14 capsule Metoclopramide HCl [Reglan -] 10 mg PO TID #21 tablet - Referrals Referrals: Hilary Kumar MD [Primary Care Provider] - Chloe Mckeon MD [Staff Physician] - - Patient Instructions Printed Discharge Instructions: DI for Viral Syndrome, DI for Headache Additional Instructions: You were seen in the ED for complaints of headache, cough, feeling unwell. In the ED you were evaluated with labwork and imaging. Your results did not show any significant findings. There does not appear to be an acute need for immediate hospitalization. You are advised to follow up with your Primary Care Physician within 1 week. You were given a referral to Neurology and are advised to follow up within 1 week. You were given a prescription for pain relief medications. Please take as directed. Please be advised to rest and drink plenty of fluids. Return to the ED immediately if you experience worsening headache, shortness of breath, cough, fever, nausea, vomiting, diarrhea, constipation, muscle weakness , inability to walk, worsening abdominal pain, or changes in vision or hearing. - Post Discharge Activity Forms/Work/School Notes: Back to Work
--- NOTE | 2018-05-27 08:34 | PDOC ---
Attending Attestation - Resident Resident Name: Shannon Cowart - ED Attending Attestation I have performed the following: I have examined & evaluated the patient, The case was reviewed & discussed with the resident, I agree w/resident's findings & plan, Exceptions are as noted - HPI HPI: 05/27/18 09:17 52-year-old female with history of back pain, colectomy, breast cancer status post right-sided mastectomy, fibromyalgia, peripheral neuropathy presents with multiple complaints. Patient reports 2 weeks of an occipital squeezing-like headache with associated for photophobia, photophobia. Reports that the headache is constant and not relieved with medications. Stated the headache initially started intermittent but became persistent. Denies any prior history of headaches. Patient also reports that this is worsening her peripheral neuropathy including her chronic right shoulder paresthesias and pain, bilateral feet and left lower quadrant pain. Reports that these typically worsened 1 her bodies under stressors. Had one loose stool but no other findings. No nausea or vomiting. Patient also endorses developing yellow productive cough since yesterday. Unknown sick contacts. As a result endorses shortness of breath but denies chest pain. Because of these multiple symptoms, came to the ER for further evaluation. - Physicial Exam PE: 05/27/18 09:22 GENERAL: Awake, alert, and fully oriented, in no acute distress HEAD: No signs of trauma EYES:EOMI, sclera anicteric, conjunctiva clear ENT: Auricles normal inspection, hearing grossly normal, nares patent, NECK: Normal ROM, supple, LUNGS: Breath sounds equal, clear to auscultation bilaterally. No wheezes, and no crackles. Coughing with wheezing, but no wheezing at rest. HEART: Regular rate and rhythm, normal S1 and S2, no murmurs, rubs or gallops ABDOMEN: Soft, TTP LLQ (reportedly chronic) No guarding, no rebound. No masses EXTREMITIES: Normal range of motion, no edema. NEUROLOGICAL: Cranial nerves II through XII intact. Normal speech. Equal strength in upper and lower extremities. SKIN: Warm, Dry, normal turgor, no rashes or lesions noted. - Medical Decision Making 05/27/18 09:23 Vital Signs Temp Pulse Resp BP Pulse Ox 98.3 F 98 H 20 147/122 H 100 05/27/18 08:04 05/27/18 08:04 05/27/18 08:04 05/27/18 08:04 05/27/18 08:04 52-year-old female with multiple complaints. 1. Cough. R/o PNA, bronchitis. Obtain influenza swab. Labs including lactic acid , blood culture. Chest xray. 2. Peripheral neuropathy: Acute worsen likely 2/2 cough and headache. Treat underlying symptoms. Pain control. LLQ pain likely part of this process and not acute. Will defer on imaging of the abdomen at this time. 3. Headache: Appears like migraine like. However, new onset headache. And given prior hx of cancer, will obtain a head CT to r/o masses. Treat headache and reassess. 05/27/18 12:51 Chest x-ray reviewed demonstrates no acute finding. Head CThas no acute findings. Influenza swab negative. Blood work reviewed with no acute findings are than a slightly elevated lactic acid which I suspect secondary to dehydration. Patient was given some IV fluids and some medications for the headache the patient feels significantly better. I suspect this may be tension- like headache or potential viral sinusitis. The patient likely has some viral symptoms. It repeat lactic acid is negative, the patient and I feel comfortable sending the patient home. Return precautions given. 05/27/18 13:45 2nd lactic acid is negative. Heart Score/ECG Review #1 ECG reviewed & interpreted by me at: 08:20 05/27/18 08:34 NSR 92, TWI III, avF, V3-V6, no std/tina, normal axis, janel lintervals, QTC 474 msec
[2018-05-27] MEDS ORDERED: METOCLOPRAMIDE HCL INJECTION 10 MG/2 ML VIAL IM ONE (08:39)
[2018-05-27] MEDS ORDERED: DEXAMETHASONE SOD PHOSPHATE 20 MG/5 ML VIAL IVPB ONE (08:56)
[2018-05-27 09:07] LABS: BASO % 0.7 % (0-2.0); HEMATOCRIT 41.6 % (32.4-45.2); HEMOGLOBIN 13.7 GM/dL (10.7-15.3); LYMPH % 43.7 % (8-40); MCH 29.9 pg (25.7-33.7); MCHC 33.1 g/dl (32.0-36.0); MEAN CELL VOLUME 90.3 fl (80-96); MEAN PLT VOLUME 9.1 fl (7.5-11.1); MONO % 5.5 % (3.8-10.2); NEUT % 45.1 % (42.8-82.8); PLATELET COUNT 267 K/MM3 (134-434); RDW 14.4 % (11.6-15.6); WHITE BLOOD COUNT 6.8 K/mm3 (4.0-10.0)
[2018-05-27] MEDS ORDERED: METOCLOPRAMIDE HCL INJECTION 10 MG/2 ML VIAL ONE (09:08)
[2018-05-27] MEDS ORDERED: SODIUM CHLORIDE 1,000 ML IV SCH ×2 (09:15→11:30)
[2018-05-27] MEDS ORDERED: DEXAMETHASONE SOD PHOSPHATE 10 MG/1 ML VIAL ONE (09:17)
[2018-05-27 10:16] LABS: ALBUMIN 3.7 g/dl (3.4-5.0); ALK PHOS 106 U/L (45-117); ANION GAP 10 MMOL/L (8-16); BILIRUBIN,TOTAL 0.3 mg/dL (0.2-1); BLOOD UREA NITROGEN 11 mg/dL (7-18); CALCIUM 9.2 mg/dL (8.5-10.1); CHLORIDE 108 mmol/L (98-107); CO2 23 mmol/L (21-32); CREATININE 0.7 mg/dL (0.55-1.3); GLUCOSE,RANDOM 96 mg/dL (74-106); MAGNESIUM 2.1 mg/dL (1.8-2.4); PHOSPHOROUS 3.1 mg/dL (2.5-4.9); POTASSIUM 3.9 mmol/L (3.5-5.1); SGOT/AST 22 U/L (15-37); SGPT/ALT 29 U/L (13-61); SODIUM 140 mmol/L (136-145); TOT PROT 8.1 g/dl (6.4-8.2)
[2018-05-27 10:47] LABS: URINE APPEARANCE CLEAR; URINE BILIRUBIN NEGATIVE (<2.0 mg/dL); URINE COLOR LTYELLOW; URINE GLUCOSE (UA) NEGATIVE (NEGATIVE); URINE KETONE NEGATIVE (NEGATIVE); URINE LEUK ESTERASE NEGATIVE (NEGATIVE); URINE NITRITE NEGATIVE (NEGATIVE); URINE PROTEIN NEGATIVE (NEGATIVE); URINE UROBILINOGEN NEGATIVE mg/dL (0.2-1.0)
[2018-05-27] MEDS ORDERED: MAGNESIUM SULF 50% (8.12 MEQ/2 ML-1 GM VIAL) IVPB ONE (11:27)
[2018-05-27] MEDS ORDERED: MAGNESIUM 1GM/D5W - 1 GM/100 ML IVPB IVPB ONE (12:01)
[2018-05-27 14:04] VITALS: BP 126/82; PULSE 91; TEMP 98
--- NOTE | 2018-05-28 10:33 | EKG ---
Test Reason : Blood Pressure : / mmHG Vent. Rate : 092 BPM Atrial Rate : 092 BPM P-R Int : 120 ms QRS Dur : 076 ms QT Int : 384 ms P-R-T Axes : 061 009 -27 degrees QTc Int : 474 ms NORMAL SINUS RHYTHM SEPTAL INFARCT , AGE UNDETERMINED ABNORMAL ECG WHEN COMPARED WITH ECG OF 12-JUN-2017 22:15, T WAVE VARIATION Confirmed by MARTIN SPENCE MD ([id number]) on 05/28/2018 10:32:29 AM Referred By: Confirmed By:MARTIN SPENCE MD
== END 2018-05-27 14:19 | disposition home or self-care (01) ==
LOC: JER 07:50
PROC: 3E0337Z Introduction of Electrolytic and Water Balance Substance into Peripheral Vein, Percutaneous Approach (ICD-10-PCS; principal; 2018-05-27)
PROC: 3E0333Z Introduction of Anti-inflammatory into Peripheral Vein, Percutaneous Approach (ICD-10-PCS; 2018-05-27)
PROC: 3E023GC Introduction of Other Therapeutic Substance into Muscle, Percutaneous Approach (ICD-10-PCS; 2018-05-27)
PROC: 3E033GC Introduction of Other Therapeutic Substance into Peripheral Vein, Percutaneous Approach (ICD-10-PCS; 2018-05-27)
DX: R51 Headache (principal); G62.9 Polyneuropathy, unspecified; B34.9 Viral infection, unspecified; Z85.3 Personal history of malignant neoplasm of breast; Z90.11 Acquired absence of right breast and nipple; Z90.49 Acquired absence of other specified parts of digestive tract; M79.7 Fibromyalgia
CPT/HCPCS: 36415; 70450-TC; 71045-TC-FY; 80053; 81003; 82550; 82553; 83605; 83735; 84100; 84484; 85025; 87040; 87086; 87186; 87804; 93005; 93010; 99285-25; J7030; J7620

== ENCOUNTER 2019-05-14 11:49 | Emergency (ER) | payer BC ==
[2019-05-14 11:57] VITALS: BP 136/98; PULSE 90; TEMP 98.3; BMI 33.2
[2019-05-14] MEDS ORDERED: ACETAMINOPHEN 1000 MG/100 ML VIAL (NON FORMULARY) IVPB ONE (13:17)
[2019-05-14] MEDS ORDERED: HYDROCORTISONE SOD SUCCINATE 100 MG/2 ML VIAL IVPB ONE (13:17)
--- NOTE | 2019-05-14 13:19 | PDOC ---
History of Present Illness - General Chief Complaint: Back Pain Stated Complaint: PAIN Time Seen by Provider: 05/14/19 13:03 - History of Present Illness Initial Comments: 05/14/19 13:14 53 y/o F with PMH of lumbar radiculopathy presents for evaluation of R leg radiculopathy and LBP increasing over the last month without any precipitating traumatic event unrelieved with neurontin at home. Past History - Past Medical History Allergies/Adverse Reactions: Allergies Allergy/AdvReac Type Severity Reaction Status Date / Time ketorolac tromethamine Allergy Intermediate Rash Verified 05/14/19 11:57 [From Toradol] colchicine Allergy Verified 05/14/19 11:57 Home Medications: Ambulatory Orders Venlafaxine HCl ER [Effexor Xr -] 150 mg PO DAILY 01/09/17 Oxycodone HCl/Acetaminophen [Percocet 5-325 mg Tablet] 1 - 2 tab PO Q4H #20 tablet MDD 12 11/06/17 Acetaminophen [Tylenol] 325 mg PO BID #14 capsule 05/27/18 Metoclopramide HCl [Reglan -] 10 mg PO TID #21 tablet 05/27/18 Pregabalin [Lyrica -] 150 mg PO DAILY 05/27/18 Amoxicillin - [Amoxicillin 500mg Capsule -] 500 mg PO BID #14 capsule 05/30/18 Acetaminophen Injection [Ofirmev Injection -] 1,000 mg IVPB ONCE #1 vial Cyclobenzaprine HCl [Flexeril 10 mg] 10 mg PO HS PRN #10 tablet 05/14/19 Hydrocortisone Sod Succinate [Solu-Cortef] 100 mg IVPB ONCE #1 vial 05/14/19 Methylprednisolone [Medrol Dose Rupesh] 4 mg PO ASDIR #21 tablet 05/14/19 Cancer: Yes (rt breast,cervical ca) COPD: No Other medical history: NEUROPATHY - Surgical History Abdominal Surgery: (COLON SURGERY;SBO,MESENTERIC ISCHEMIA) - Immunization History Immunization Up to Date: Yes - Psycho Social/Smoking Cessation Hx Smoking Status: No Smoking History: Never smoked Have you smoked in the past 12 months: No Number of Cigarettes Smoked Daily: 0 If you are a former smoker, when did you quit?: 20 years Information on smoking cessation initiated: No Hx Alcohol Use: No Drug/Substance Use Hx: No Substance Use Type: None Hx Substance Use Treatment: No Review of Systems - Review of Systems Constitutional: No: Fever : No: Incontinence Musculoskeletal: Yes: Back Pain Neurological: Yes: Tingling. No: Numbness, Paresthesia *Physical Exam - Vital Signs Last Vital Signs Temp Pulse Resp BP Pulse Ox 98.3 F 90 18 136/98 100 05/14/19 11:50 05/14/19 11:50 05/14/19 11:50 05/14/19 11:50 05/14/19 11:50 - Physical Exam Comments: 05/14/19 13:18 There is decreased range of motion. 5 out of 5 strength in bilateral lower extremities.Straight leg raise test is negative bilaterally. Thighs and calves are soft and nontender. There are no gross sensory motor deficits. Neurovascularly intact. +SLR Bilaterally Discharge - Discharge Information Problems reviewed: Yes Clinical Impression/Diagnosis: Lumbar radiculopathy Condition: Stable Disposition: HOME - Admission No - Additional Discharge Information Prescriptions: Acetaminophen Injection [Ofirmev Injection -] 1,000 mg IVPB ONCE #1 vial Hydrocortisone Sod Succinate [Solu-Cortef] 100 mg IVPB ONCE #1 vial - Follow up/Referral Referrals: Hilary Kumar MD [Primary Care Provider] - Kaushal Kruse MD, FAANS [Staff Physician] - - Patient Discharge Instructions Additional Instructions: Please start the muscle relaxer tonight and the steroid pack tomorrow as directed. Return to the emergency room should symptoms worsen and follow up with neuro surgery in 1-2 days for further evaluation and treatment options. - Post Discharge Activity
[2019-05-14] MEDS ORDERED: HYDROCORTISONE SOD SUCCINATE 2 ML ONE (13:20)
[2019-05-14] MEDS ORDERED: ACETAMINOPHEN INJECTION 100 ML IVPB ONE (13:20)
== END 2019-05-14 14:34 | disposition home or self-care (01) ==
LOC: JERFT 11:49
PROC: 3E033NZ Introduction of Analgesics, Hypnotics, Sedatives into Peripheral Vein, Percutaneous Approach (ICD-10-PCS; principal; 2019-05-14)
PROC: 3E033GC Introduction of Other Therapeutic Substance into Peripheral Vein, Percutaneous Approach (ICD-10-PCS; 2019-05-14)
DX: M54.16 Radiculopathy, lumbar region (principal); Z85.3 Personal history of malignant neoplasm of breast; Z85.41 Personal history of malignant neoplasm of cervix uteri; Z88.6 Allergy status to analgesic agent; Z88.8 Allergy status to other drugs, medicaments and biological substances
CPT/HCPCS: 99281-25; J0131

== ENCOUNTER 2019-06-24 05:34 | Inpatient (IN) | payer BC ==
[2019-06-21 17:41] VITALS: BMI 34.0
[2019-06-24] MEDS ORDERED: FLU VACCINE QUAD 60 MCG/0.5 ML (MDV 19-20) IM ONE (07:26)
[2019-06-24] MEDS ORDERED: GENTAMICIN SO4 80 MG/2 ML VIAL ONE (07:31)
[2019-06-24] MEDS ORDERED: THROMBIN (BOVINE) 20,000 UNIT VIAL TP ONE (07:31)
[2019-06-24] MEDS ORDERED: BUPIVACAINE HCL/PF 0.5% (5 MG/ML) 30 ML VIAL IJ ONE (07:32)
[2019-06-24] MEDS ORDERED: BACITRACIN 15 GM TUBE TOPICAL OINTMENT ONE (07:32)
[2019-06-24] MEDS ORDERED: fentaNYL CITRATE 250 MCG/5 ML VIAL ONE (07:41)
[2019-06-24] MEDS ORDERED: ROCURONIUM BROMIDE 50 MG/5 ML SYRINGE ONE (07:41)
[2019-06-24] MEDS ORDERED: MIDAZOLAM HCL 2 MG/2 ML SINGLE DOSE VIAL ONE (07:41)
--- NOTE | 2019-06-24 08:11 | HP ---
History & Physical Update - History History: No Change - Physical Physical: No Change - Assessment Assessment: No Change - Plan Plan: No Change (Full H&P in paper chart from 06/10/19, by Hilary Kumar MD)
[2019-06-24] MEDS ORDERED: LIDOCAINE 1%-EPI 1:100,000 30 ML MDV IJ ONE (08:12)
[2019-06-24] MEDS ORDERED: ceFAZolin SODIUM 1 GM VIAL IVPB ONE (08:24)
[2019-06-24] MEDS ORDERED: VANCOMYCIN 1,000 MG VIAL (RESTRICTED TO ID ONLY) IVPB ONE (08:30)
[2019-06-24] MEDS ORDERED: LIDOCAINE 1%/EPI 1:100000 (20 ML MULTI DOSE VIAL) IJ ONE (08:54)
[2019-06-24] MEDS ORDERED: PROPOFOL 20 ML ONE (09:14)
[2019-06-24] MEDS ORDERED: GENTAMICIN SO4 80 MG/2 ML VIAL IVPB ONE (09:16)
[2019-06-24] MEDS ORDERED: BACITRACIN 50,000 UNITS VIAL TP ONE (09:16)
[2019-06-24] MEDS ORDERED: GELATIN, ABSORBABLE 100 EACH SPONGE TP ONE (09:30)
[2019-06-24] MEDS ORDERED: ePHEDrine SULFATE 50 MG/1 ML AMPULE ONE ×3 (10:12→10:13)
[2019-06-24] MEDS ORDERED: NEOSTIGMINE METHYLSULFATE 0.5 MG/ML - 10 ML MDV ONE (10:17)
[2019-06-24] MEDS ORDERED: MORPHINE SULFATE 2 MG/ML VIAL IVPUSH PRN (10:33)
[2019-06-24] MEDS ORDERED: diphenhydrAMINE HCL 25 MG CAPSULE (FP) PO PRN (10:33)
[2019-06-24] MEDS ORDERED: ONDANSETRON 4 MG/2 ML VIAL IVPUSH PRN (10:33)
[2019-06-24] MEDS ORDERED: oxyCODONE HCL 5 MG TABLET PO PRN ×2 (10:33)
[2019-06-24] MEDS ORDERED: LABETALOL HCL 5 MG/1 ML (100MG/20 ML VIAL) ONE (11:41)
[2019-06-24] MEDS ORDERED: LABETALOL HCL 5 MG/1 ML (100MG/20 ML VIAL) IVPUSH ONE (11:45)
[2019-06-24] MEDS ORDERED: morphine SULFATE 4 MG/ML VIAL IVPUSH PRN (11:49)
[2019-06-24] MEDS: LACTATED RINGERS SOLUTION 1,000 ML/1,000 ML INFUS.BAG IV SCH (13:49)
[2019-06-24] MEDS: HYDROmorphone HCL 2 MG TABLET PO PRN ×3 (14:05→23:34)
[2019-06-24] MEDS: DOCUSATE SODIUM 100 MG CAPSULE (FP) PO SCH ×2 (14:05→21:43)
--- NOTE | 2019-06-24 15:03 | OP ---
Operative Note - Note: Operative Date: 06/24/19 Pre-Operative Diagnosis: C5/6 spondylosis Operation: C5 Caudal hemicorpectomy, C6 rostral hemicorpectomy with decompression of spondylosis and reconstruction with PEEK cage and anterior plate Post-Operative Diagnosis: Same as Pre-op Surgeon: Kaushal Kruse Car Hostler: Dennis Eaton Anesthesiologist/PIN STICKER: Mukund Whitman Anesthesia: General Estimated Blood Loss (mls): 20 Operative Report Dictated: Yes
[2019-06-24] MEDS ORDERED: ACETAMINOPHEN 1000 MG/100 ML VIAL (NON FORMULARY) IVPB ONE (15:52)
[2019-06-24] MEDS ORDERED: DEXTROSE 5%-WATER - 50 ML IVPB ONE (17:12)
[2019-06-24] MEDS ORDERED: ceFAZolin SODIUM 1 GM VIAL ONE (17:12)
[2019-06-24] MEDS: CEFAZOLIN 1 GM in DEXTROSE 5%-WATER - 50 ML IVPB SCH (17:22)
[2019-06-24] MEDS: HEPARIN NA (PORCINE) 5,000 UNITS/ML 1ML VIAL SQ SCH ×2 (17:22→17:40)
[2019-06-24] MEDS ORDERED: DOCUSATE SODIUM 100 MG CAPSULE (FP) PO SCH (22:00)
[2019-06-24] MEDS ORDERED: MELATONIN 5 MG TABLETS PO ONE (22:56)
[2019-06-24] MEDS: BENZOCAINE/MENTH/CETYLPYRD CL 1 EACH LOZENGE MM PRN (23:11)
[2019-06-25] MEDS ORDERED: DEXTROSE 5%-WATER - 50 ML IVPB ONE ×2 (01:18→10:33)
[2019-06-25] MEDS ORDERED: ceFAZolin SODIUM 1 GM VIAL ONE ×2 (01:18→10:32)
[2019-06-25] MEDS: HEPARIN NA (PORCINE) 5,000 UNITS/ML 1ML VIAL SQ SCH ×3 (03:02→17:16)
[2019-06-25] MEDS: CEFAZOLIN 1 GM in DEXTROSE 5%-WATER - 50 ML IVPB SCH ×2 (03:02→10:38)
[2019-06-25] MEDS: DOCUSATE SODIUM 100 MG CAPSULE (FP) PO SCH ×3 (05:22→21:38)
[2019-06-25] MEDS: BENZOCAINE/MENTH/CETYLPYRD CL 1 EACH LOZENGE MM PRN ×2 (05:22→17:20)
--- NOTE | 2019-06-25 07:56 | PN ---
Progress Note (short form) - Note Progress Note: NEUROSURGERY POD #1 s/p C5 Caudal hemicorpectomy, C6 rostral hemicorpectomy with decompression of spondylosis and reconstruction with PEEK cage and anterior plate Alert. HOB at 30 degrees. Patient wearing her c-collar as instructed. C/o posterior neck pain (muscular in nature). States she didn't sleep well 2/2 discomfort. Incisional tenderness. She has gotten oob and ambulated to bathroom without assistance. Voiding spontaneously. Denies n/v/f/c, CP, palpitations, SOB, MCMULLEN or UE numbness/tingling Last Vital Signs Temp Pulse Resp BP Pulse Ox 98.4 F 85 20 141/82 98 06/25/19 06:00 06/25/19 06:00 06/25/19 06:00 06/25/19 06:00 06/24/19 14:30 ROMEO Output since Surgery 06/24/19 06/24/19 06/24/19 06/25/19 17:36 22:48 23:00 ROMEO 20 10 0 10 Gen: alert. Neck: dressing c/d/i. No hematoma. ROMEO serous Neuro: GMNVI bilat Problem List - Problems (1) Cervical spondylosis Assessment/Plan: Incentive spirometer Wear your c-collar 23/24 hrs/day (may remove while eating) OOB and ambulate Patient states she's still having pain and wishes to stay another day/night for pain management Ofirmev 1gm Diet as tolerated Cont medical management Neurosurgery to cont following Will dc her ROMEO later today. Code(s): M47.812 - SPONDYLOSIS W/O MYELOPATHY OR RADICULOPATHY, CERVICAL REGION (2) Anxiety Code(s): F41.9 - ANXIETY DISORDER, UNSPECIFIED (3) Headache Code(s): R51 - HEADACHE
[2019-06-25 08:16] LABS: HEMATOCRIT 34.9 % (32.4-45.2); HEMOGLOBIN 11.9 GM/dL (10.7-15.3); MCH 30.8 pg (25.7-33.7); MEAN CELL VOLUME 90.4 fl (80-96); MEAN PLT VOLUME 8.9 fl (7.5-11.1); PLATELET COUNT 241 K/MM3 (134-434); RBC 3.86 M/mm3 (3.60-5.2); RDW 13.5 % (11.6-15.6); WHITE BLOOD COUNT 9.1 K/mm3 (4.0-10.0)
[2019-06-25 08:42] LABS: BLOOD UREA NITROGEN 9.6 mg/dL (7-18); CALCIUM 8.9 mg/dL (8.5-10.1); CREATININE 0.7 mg/dL (0.55-1.3); POTASSIUM 3.7 mmol/L (3.5-5.1)
[2019-06-25] MEDS: PREGABALIN 75 MG CAPSULE PO SCH (10:39)
[2019-06-25] MEDS: FERROUS SO4 325 MG TABLET (FP) PO SCH (10:39)
[2019-06-25] MEDS: FOLIC ACID 1 MG TABLET (FP) PO SCH (10:39)
[2019-06-25] MEDS: VENLAFAXINE HCL 75 MG E.R. CAPSULES (FP) PO SCH (10:40)
--- NOTE | 2019-06-25 10:41 | PN ---
Progress Note (short form) - Note Progress Note: MEDICINE Pt examined POD#1 has pain in throat and neck Examined with surgical PA Drain removed c/o anxiety and insomnia Vital Signs - 24 hr 06/24/19 06/24/19 06/24/19 10:45 11:00 11:15 Temperature Pulse Rate 92 H 83 88 Respiratory 18 16 16 Rate Blood Pressure 157/100 156/112 H 168/98 O2 Sat by Pulse 99 99 99 Oximetry (%) 06/24/19 06/24/19 06/24/19 11:30 11:45 12:00 Temperature Pulse Rate 88 80 84 Respiratory 17 17 15 Rate Blood Pressure 164/114 H 160/115 H 152/90 O2 Sat by Pulse 99 99 96 Oximetry (%) 06/24/19 06/24/19 06/24/19 12:15 12:30 12:50 Temperature Pulse Rate 87 88 86 Respiratory 17 17 18 Rate Blood Pressure 146/97 144/99 149/90 O2 Sat by Pulse 95 95 96 Oximetry (%) 06/24/19 06/24/19 06/24/19 13:00 13:10 13:30 Temperature Pulse Rate 88 84 84 Respiratory 18 20 20 Rate Blood Pressure 144/99 150/98 149/80 O2 Sat by Pulse 96 96 95 Oximetry (%) 06/24/19 06/24/19 06/24/19 13:35 13:56 14:30 Temperature 97.8 F 97.5 F L Pulse Rate 88 96 H Respiratory 18 20 Rate Blood Pressure 151/98 151/100 O2 Sat by Pulse 98 98 98 Oximetry (%) 06/24/19 06/24/19 06/25/19 14:33 16:25 02:00 Temperature 97.5 F L 98.2 F 96.8 F L Pulse Rate 96 H 93 H 87 Respiratory 18 20 20 Rate Blood Pressure 151/106 H 151/91 142/89 O2 Sat by Pulse Oximetry (%) 06/25/19 06:00 Temperature 98.4 F Pulse Rate 85 Respiratory 20 Rate Blood Pressure 141/82 O2 Sat by Pulse Oximetry (%) Current Medications Generic Name Dose Route Start Last Admin Trade Name Freq PRN Reason Stop Dose Admin Benzocaine/Menthol 1 each 06/24/19 22:56 06/25/19 05:22 Cepacol Lozenge - MM 1 each PRN PRN Administration SORE THROAT Diphenhydramine HCl 25 mg 06/24/19 10:33 Benadryl - PO Q6H PRN FOR ITCHING Docusate Sodium 100 mg 06/24/19 14:00 06/25/19 05:22 Colace - PO 100 mg TID [facility] Administration Fentanyl 50 mcg 06/24/19 11:25 Sublimaze Injection - IVPUSH [id number] PRN PAIN-PACU ORDER X 4 DOSES ONLY Ferrous Sulfate 325 mg 06/25/19 10:00 Feosol - PO DAILY [facility] Folic Acid 1 mg 06/25/19 10:00 Folic Acid - PO DAILY [facility] Heparin Sodium (Porcine) 5,000 unit 06/24/19 18:00 06/25/19 03:02 Heparin - SQ Not Given Q8H-IV [facility] Hydromorphone HCl 2 mg 06/24/19 11:26 06/24/19 23:34 Dilaudid - PO 2 mg Q4HWA PRN Administration PAIN LEVEL 4 - 6 Hydromorphone HCl 4 mg 06/24/19 11:26 06/25/19 05:22 Dilaudid - PO 4 mg Q4H PRN Administration PAIN LEVEL 7 - 10 Cefazolin Sodium 1 gm/ 50 mls @ 100 mls/hr 06/24/19 18:00 06/25/19 03:02 Dextrose IVPB 06/25/19 17:59 100 mls/hr Q8H-IV ANAT Administration Lactated Ringer's 1,000 ml in 1,000 mls @ 125 mls/hr 06/24/19 10:45 06/24/19 13:49 Lactated Ringers Solution IV Not Given ASDIR [facility] Ondansetron HCl 4 mg 06/24/19 10:33 Zofran Injection IVPUSH Q6H PRN NAUSEA Pregabalin 150 mg 06/25/19 10:00 Lyrica - PO DAILY [facility] Venlafaxine HCl 150 mg 06/25/19 10:00 Effexor Xr - PO DAILY [facility] Laboratory Results - last 24 hr 06/25/19 06/25/19 07:38 07:38 WBC 9.1 RBC 3.86 Hgb 11.9 Hct 34.9 D MCV 90.4 MCH 30.8 MCHC 34.0 RDW 13.5 Plt Count 241 MPV 8.9 Sodium 136 Potassium 3.7 Chloride 102 Carbon Dioxide 26 Anion Gap 8 BUN 9.6 Creatinine 0.7 Est GFR (CKD-EPI)AfAm 114.65 Est GFR (CKD-EPI)NonAf 98.92 Random Glucose 94 Calcium 8.9 S1 S2 RRR Lungs clear Abd- soft, NT No edema B/l SCD PLAN pain control Post op antibiotics iv fluids add Klonopin for anxiety and Ambien as needed for sleep OOB daily dc planning for tomorrow if ok with surgery Problem List - Problems (1) Cervical spondylosis Code(s): M47.812 - SPONDYLOSIS W/O MYELOPATHY OR RADICULOPATHY, CERVICAL REGION (2) Anxiety Code(s): F41.9 - ANXIETY DISORDER, UNSPECIFIED (3) Breast cancer Code(s): C50.919 - MALIGNANT NEOPLASM OF UNSP SITE OF UNSPECIFIED FEMALE BREAST
[2019-06-25] MEDS ORDERED: clonazePAM 0.5 MG TABLET PO PRN (10:43)
--- NOTE | 2019-06-25 10:44 | PROC ---
Procedure Note Procedure: POD#1 ACDF doing well ROMEO drain removed with tip fully intact. drain ostomy clean and dry with no active d/c. Incision c/d/i with surrounding tissue intact with no tracking erythema, edema or evidence of collection or d/c. trachea midline. The patient tolerated the procedure well.
[2019-06-25] MEDS: LACTATED RINGERS SOLUTION 1,000 ML/1,000 ML INFUS.BAG IV SCH (10:56)
[2019-06-25] MEDS: HYDROmorphone HCL 2 MG TABLET PO PRN (17:15)
[2019-06-25] MEDS ORDERED: ZOLPIDEM TARTRATE 5 MG TABLET PO PRN (22:00)
[2019-06-26] MEDS: HEPARIN NA (PORCINE) 5,000 UNITS/ML 1ML VIAL SQ SCH ×4 (01:09→18:06)
[2019-06-26] MEDS: DOCUSATE SODIUM 100 MG CAPSULE (FP) PO SCH ×3 (05:56→22:16)
[2019-06-26 08:34] LABS: BASO % 0.9 % (0-2.0); EOS % 4.5 % (0-4.5); HEMATOCRIT 34.3 % (32.4-45.2); HEMOGLOBIN 11.6 GM/dL (10.7-15.3); LYMPH % 28.9 % (8-40); MCH 30.7 pg (25.7-33.7); MCHC 33.9 g/dl (32.0-36.0); MEAN CELL VOLUME 90.5 fl (80-96); MEAN PLT VOLUME 8.9 fl (7.5-11.1); MONO % 7.1 % (3.8-10.2); NEUT % 58.6 % (42.8-82.8); PLATELET COUNT 236 K/MM3 (134-434); RBC 3.79 M/mm3 (3.60-5.2); RDW 13.5 % (11.6-15.6); WHITE BLOOD COUNT 8.4 K/mm3 (4.0-10.0)
--- NOTE | 2019-06-26 08:49 | PN ---
Progress Note (short form) - Note Progress Note: NEUROSURGERY Pod #2 Alert. HOB at 30 degrees. Patient wearing her c-collar as instructed. C/o posterior neck pain (muscular in nature). States she didn't sleep well 2/2 discomfort. Incisional tenderness. She has gotten oob and ambulated to bathroom without assistance. Voiding spontaneously. Denies n/v/f/c, CP, palpitations, SOB, MCMULLEN or UE numbness/tingling Gen: alert. Neck: dressing c/d/i. No hematoma. ROMEO serous Neuro: GMNVI bilat Problem List - Problems (1) Cervical spondylosis Assessment/Plan: POD #2 s/p C5 Caudal hemicorpectomy, C6 rostral hemicorpectomy with decompression of spondylosis and reconstruction with PEEK cage and anterior plate Cont using your Incentive spirometer Wear your c-collar 23/24 hrs/day (may remove while eating) OOB and ambulate Diet as tolerated Per Dr. Kruse, patient cleared for DC home from surgery standoint. Post-op f/u detailed in discharge plan. Code(s): M47.812 - SPONDYLOSIS W/O MYELOPATHY OR RADICULOPATHY, CERVICAL REGION (2) Anxiety Code(s): F41.9 - ANXIETY DISORDER, UNSPECIFIED (3) Headache Code(s): R51 - HEADACHE
[2019-06-26 09:06] LABS: ALBUMIN 3.2 g/dl (3.4-5.0); BILIRUBIN,TOTAL 0.8 mg/dL (0.2-1); CALCIUM 8.8 mg/dL (8.5-10.1); CREATININE 0.6 mg/dL (0.55-1.3); POTASSIUM 3.6 mmol/L (3.5-5.1); TOT PROT 6.6 g/dl (6.4-8.2)
--- NOTE | 2019-06-26 11:25 | DS ---
"Physical Examination Vital Signs: Vital Signs Temperature 98.7 F 06/26/19 06:51 Pulse Rate 98 H 06/26/19 06:51 Respiratory Rate 20 06/26/19 06:51 Blood Pressure 144/97 06/26/19 06:51 O2 Sat by Pulse Oximetry (%) 99 06/25/19 09:00 Constitutional: Yes: No Distress, Calm Cardiovascular: Yes: Regular Rate and Rhythm Respiratory: Yes: CTA Bilaterally Gastrointestinal: Yes: Normal Bowel Sounds, Soft, Abdomen, Obese. No: Tenderness Edema: No Labs: CBC, BMP 06/26/19 08:10 06/26/19 08:10 Discharge Summary Problems reviewed: Yes Reason For Visit: CERVICAL SPONDYLOSIS Current Active Problems Cervical spondylosis (Acute) Other Procedures: - Note: Operative Date: 06/24/19. Pre-Operative Diagnosis: C5/6 spondylosis. Operation: C5 Caudal hemicorpectomy, C6 rostral hemicorpectomy with decompression of spondylosis and reconstruction with PEEK cage and anterior plate Hospital Course: Pt underwent elective cervical spine surgery - Note: Operative Date: 06/24/19 Pre-Operative Diagnosis: C5/6 spondylosis Operation: C5 Caudal hemicorpectomy, C6 rostral hemicorpectomy with decompression of spondylosis and reconstruction with PEEK cage and anterior plate post op uneventful Needs to be compliant on HTN meds Continue with HTN meds, pain control stable for dc home Condition: Stable - Instructions Diet, Activity, Other Instructions: Dr. Kruse's Post Operative Instructions Physical Activity Resume your normal everyday activity as tolerated. No heavy lifting or exercise until seen by your surgeon. You may walk unlimited amounts and climb stairs. You may resume driving the car when you feel safe and comfortable behind the wheel and you are no longer wearing your brace. Do not operate a vehicle while taking narcotic medication. Brace If you had neck surgery, wear surgical collar 23 hr/day. Remove to shower only. Wound Care Keep your incision clean, dry and covered at all times. Apply an occlusive dressing (Saran wrap or Tegaderm) when showering to avoid getting your incision wet. Do not submerge incision or apply ointments or creams Diet There are no dietary restrictions. Eat healthy, high-fiber foods. Drink 6-8 glasses of liquid each day. This will assist in keeping your bowels regular. Pain Management You may take Tylenol or acetaminophen. Any pain prescription medication ordered should be taken as prescribed for moderate to severe pain. Avoid any ibuprofen (Motrin, Advil, Aleve, Toradol, etc) for 3 months unless otherwise discussed with your surgeon. Do not drive, drink alcohol or operate any heavy machinery while taking narcotic pain medications. Call Dr Rosales for any of the following: Severe pain not relieved by medication Fever of 101 or higher Excessive bleeding or drainage on dressing Inability to urinate ISTOP: This report was requested by: Natty Roy | Reference #: [id number] Any chest pain or shortness of breath, seek Emergency Care. Call the office to confirm a post-operative appointment for 2-3 weeks post-op Kaushal Kruse MD [facility] [address] [place] [address]. [place] [address] Referrals: Hilary Kumar MD [Staff Physician] - Disposition: HOME - Home Medications Comprehensive Discharge Medication List: Ambulatory Orders Venlafaxine HCl ER [Effexor Xr -] 150 mg PO DAILY 01/09/17 Pregabalin [Lyrica -] 150 mg PO DAILY 05/27/18 Diazepam [Valium] 2 mg PO TID PRN #24 tablet MDD 3 06/26/19 Oxycodone HCl/Acetaminophen [Percocet 5-325 mg Tablet] 1 - 2 tab PO PRN PRN #26 tablet MDD 10 06/26/19"
[2019-06-26] MEDS: amLODIPine BESYLATE 5 MG TABLET (FP) PO SCH (11:41)
[2019-06-26] MEDS: PREGABALIN 75 MG CAPSULE PO SCH (11:41)
[2019-06-26] MEDS: FERROUS SO4 325 MG TABLET (FP) PO SCH (11:41)
[2019-06-26] MEDS: VENLAFAXINE HCL 75 MG E.R. CAPSULES (FP) PO SCH (11:41)
[2019-06-26] MEDS: FOLIC ACID 1 MG TABLET (FP) PO SCH (11:42)
[2019-06-26] MEDS: LACTATED RINGERS SOLUTION 1,000 ML/1,000 ML INFUS.BAG IV SCH (11:43)
[2019-06-26] MEDS ORDERED: amLODIPine BESYLATE 5 MG TABLET (FP) PO ONE (16:00)
[2019-06-26] MEDS: HYDROmorphone HCL 2 MG TABLET PO PRN (16:18)
[2019-06-27] MEDS: HEPARIN NA (PORCINE) 5,000 UNITS/ML 1ML VIAL SQ SCH ×2 (01:28→09:39)
[2019-06-27] MEDS: DOCUSATE SODIUM 100 MG CAPSULE (FP) PO SCH ×2 (06:16→14:56)
[2019-06-27] MEDS: HYDROmorphone HCL 2 MG TABLET PO PRN (09:36)
[2019-06-27] MEDS: PREGABALIN 75 MG CAPSULE PO SCH (09:36)
[2019-06-27] MEDS: VENLAFAXINE HCL 75 MG E.R. CAPSULES (FP) PO SCH (09:38)
[2019-06-27] MEDS: amLODIPine BESYLATE 5 MG TABLET (FP) PO SCH (09:38)
[2019-06-27] MEDS: FOLIC ACID 1 MG TABLET (FP) PO SCH (09:39)
[2019-06-27] MEDS: FERROUS SO4 325 MG TABLET (FP) PO SCH (09:40)
[2019-06-27] MEDS ORDERED: amLODIPine BESYLATE 10 MG TABLET (FP) PO SCH (10:36)
[2019-06-27] MEDS: LACTATED RINGERS SOLUTION 1,000 ML/1,000 ML INFUS.BAG IV SCH (10:47)
--- NOTE | 2019-06-27 12:37 | PN ---
Progress Note (short form) - Note Progress Note: MEDICINE Pt examined POD#2 dc held yesterday as her BP was high Vital Signs - 24 hr 06/26/19 06/26/19 06/26/19 15:00 15:30 16:30 Temperature 98.5 F 97.9 F Pulse Rate 100 H 100 H Respiratory 20 20 Rate Blood Pressure 155/94 155/98 150/90 O2 Sat by Pulse Oximetry (%) 06/26/19 06/26/19 06/26/19 17:00 19:05 21:00 Temperature 98.4 F Pulse Rate 102 H 105 H Respiratory 18 20 Rate Blood Pressure 150/110 H 128/110 H O2 Sat by Pulse 98 Oximetry (%) 06/26/19 06/27/19 06/27/19 23:00 02:10 06:40 Temperature 98.2 F 98.6 F 98.5 F Pulse Rate 103 H 103 H 99 H Respiratory 18 20 20 Rate Blood Pressure 145/90 145/94 149/88 O2 Sat by Pulse Oximetry (%) 06/27/19 06/27/19 09:14 10:54 Temperature 98.5 F Pulse Rate 108 H Respiratory 18 Rate Blood Pressure 134/92 119/88 O2 Sat by Pulse Oximetry (%) Current Medications Generic Name Dose Route Start Last Admin Trade Name Freq PRN Reason Stop Dose Admin Amlodipine Besylate 10 mg 06/27/19 10:36 Norvasc - PO DAILY ANAT Benzocaine/Menthol 1 each 06/24/19 22:56 06/25/19 17:20 Cepacol Lozenge - MM 1 each PRN PRN Administration SORE THROAT Clonazepam 0.5 mg 06/25/19 10:43 Klonopin - PO Q6H PRN ANXIETY Diphenhydramine HCl 25 mg 06/24/19 10:33 Benadryl - PO Q6H PRN FOR ITCHING Docusate Sodium 100 mg 06/24/19 14:00 06/27/19 06:16 Colace - PO 100 mg TID ANAT Administration Fentanyl 50 mcg 06/24/19 11:25 Sublimaze Injection - IVPUSH [id number] PRN PAIN-PACU ORDER X 4 DOSES ONLY Ferrous Sulfate 325 mg 06/25/19 10:00 06/27/19 09:40 Feosol - PO 325 mg DAILY ANAT Administration Folic Acid 1 mg 06/25/19 10:00 06/27/19 09:39 Folic Acid - PO 1 mg DAILY ANAT Administration Heparin Sodium (Porcine) 5,000 unit 06/24/19 18:00 06/27/19 09:39 Heparin - SQ Not Given Q8H-IV ANAT Lactated Ringer's 1,000 ml in 1,000 mls @ 125 mls/hr 06/24/19 10:45 06/27/19 10:47 Lactated Ringers Solution IV Not Given ASDIR ANAT Ondansetron HCl 4 mg 06/24/19 10:33 Zofran Injection IVPUSH Q6H PRN NAUSEA Pregabalin 150 mg 06/25/19 10:00 06/27/19 09:36 Lyrica - PO 150 mg DAILY ANAT Administration Venlafaxine HCl 150 mg 06/25/19 10:00 06/27/19 09:38 Effexor Xr - PO 150 mg DAILY ANAT Administration Zolpidem Tartrate 5 mg 06/25/19 22:00 06/26/19 22:19 Ambien - PO 5 mg HS PRN Administration INSOMNIA Laboratory Results - last 24 hr 06/26/19 06/26/19 04:30 04:30 Hep Bs Antibody Reactive Hep Bs Antibody, Quant 265.6 Hep B Core Ab Interpret Negative Hep C Ab Diagnostic <0.1 S1 S2 RRR Lungs clear Abd- soft, NT No edema B/l SCD PLAN may be dc home on PO norvasc 10mg pain control follow up in office in 2 weeks Problem List - Problems (1) Cervical spondylosis Code(s): M47.812 - SPONDYLOSIS W/O MYELOPATHY OR RADICULOPATHY, CERVICAL REGION (2) Anxiety Code(s): F41.9 - ANXIETY DISORDER, UNSPECIFIED (3) Breast cancer Code(s): C50.919 - MALIGNANT NEOPLASM OF UNSP SITE OF UNSPECIFIED FEMALE BREAST
[2019-06-27] MEDS: BENZOCAINE/MENTH/CETYLPYRD CL 1 EACH LOZENGE MM PRN (15:13)
[2019-06-27 17:03] VITALS: BP 141/77; PULSE 93; TEMP 97.9
--- NOTE | 2019-06-28 14:48 | SURG ---
Surgery Software Recruiter Note Software Recruiter: Dennis Eaton PA-C Date of Service: 06/24/19 Diagnosis: Cervical Spondylotic myelopathy with kyphosis Procedure: 1. Interbody Cage 2. C5 Caudal Hemicorpectomy with resection of osteophytes and posterior longitudinal ligament 3. C6 Rostral Hemicorpectomy with resection of osteophytes and posterior longitudinal ligament 4. Anterior instrumentation C5-C6 (technically challenging) 5. Fluoroscopy 6. Microdissection 7. C5/6 Arthrodesis 8. Local autograft 9. Deformity Correction (scientology of lordosis) I was present for the entirety of the operative procedure. For further detail, please refer to operative report. Visit type - Case Type Case Type: Scheduled - Emergency Emergency Visit: No - New patient This patient is new to me today: Yes Date on this admission: 06/28/19 - Critical Care Critical Care patient: No
== END 2019-06-27 17:58 | disposition home health service (06) | DRG 473 ==
LOC: JSAMEDAYSX 05:34 → J8W 13:47
PROVIDERS: ADMIT Internal Medicine; ATTEND Internal Medicine
PROC: 00NW0ZZ Release Cervical Spinal Cord, Open Approach (ICD-10-PCS; 2019-06-24)
PROC: 0RB30ZZ Excision of Cervical Vertebral Disc, Open Approach (ICD-10-PCS; 2019-06-24)
PROC: B01BZZZ Fluoroscopy of Spinal Cord (ICD-10-PCS; 2019-06-24)
PROC: 0RG10A0 Fusion of Cervical Vertebral Joint with Interbody Fusion Device, Anterior Approach, Anterior Column, Open Approach (ICD-10-PCS; principal; 2019-06-24 08:00)
DX: M47.12 Other spondylosis with myelopathy, cervical region (principal); M40.202 Unspecified kyphosis, cervical region; F41.9 Anxiety disorder, unspecified; Z85.3 Personal history of malignant neoplasm of breast; R51 Headache; E66.8 Other obesity; Z68.34 Body mass index [BMI] 34.0-34.9, adult; I10 Essential (primary) hypertension
CPT/HCPCS: 36415; 72125-TC; 76000-TC-FY; 80048; 80053; 85025; 85027; 86317; 86704; 86706; 86803; 86850; 86900; 86901; 87086; 87389; 94760; 97116-GP; 97161-GP; J0131; J1644; Q2036

== ENCOUNTER 2019-10-18 10:35 | Emergency (ER) | payer BC ==
[2019-10-18 11:12] VITALS: BMI 32.1
--- NOTE | 2019-10-18 11:42 | PDOC ---
History of Present Illness - General Chief Complaint: Pain Stated Complaint: ABD PAIN Time Seen by Provider: 10/18/19 11:42 Past History - Past Medical History Allergies/Adverse Reactions: Allergies Allergy/AdvReac Type Severity Reaction Status Date / Time ketorolac tromethamine Allergy Intermediate Rash Verified 05/14/19 11:57 [From Toradol] oxycodone Allergy Intermediate Itching Verified 06/24/19 07:30 colchicine Allergy Verified 05/14/19 11:57 Home Medications: Ambulatory Orders Venlafaxine HCl ER [Effexor Xr -] 150 mg PO DAILY 01/09/17 Pregabalin [Lyrica -] 150 mg PO DAILY 05/27/18 Amlodipine Besylate 5 mg PO DAILY #90 tablet 06/26/19 Diazepam [Valium] 2 mg PO TID PRN #24 tablet MDD 3 06/26/19 Oxycodone HCl/Acetaminophen [Percocet 5-325 mg Tablet] 1 - 2 tab PO PRN PRN #26 tablet MDD 10 06/26/19 Zolpidem Tartrate [Ambien] 5 mg PO HS PRN #30 tablet MDD 1 06/26/19 Cancer: Yes (rt breast,cervical ca) COPD: No - Surgical History Abdominal Surgery: Yes (COLON SURGERY;SBO,MESENTERIC ISCHEMIA) - Immunization History Immunization Up to Date: Yes - Psycho Social/Smoking Cessation Hx Smoking Status: No Smoking History: Never smoked Have you smoked in the past 12 months: No Number of Cigarettes Smoked Daily: 0 If you are a former smoker, when did you quit?: 20 years Hx Alcohol Use: No Drug/Substance Use Hx: No Substance Use Type: None Hx Substance Use Treatment: No *Physical Exam - Vital Signs Last Vital Signs Temp Pulse Resp BP Pulse Ox 98.1 F 99 H 18 145/95 100 10/18/19 10:35 10/18/19 10:35 10/18/19 10:35 10/18/19 10:35 10/18/19 10:35 Discharge - Follow up/Referral Referrals: Hilary Kumar MD [Primary Care Provider] - - Patient Discharge Instructions - Post Discharge Activity
[2019-10-18] MEDS ORDERED: morphine CARPU-JECT 4 MG/1 ML DISP.SYRIN IVPUSH ONE ×2 (12:05→13:32)
[2019-10-18] MEDS ORDERED: SODIUM CHLORIDE 1,000 ML IV STA (12:05)
[2019-10-18] MEDS ORDERED: ACETAMINOPHEN 1000 MG/100 ML VIAL (NON FORMULARY) IVPB ONE (12:05)
--- NOTE | 2019-10-18 12:05 | PDOC ---
History of Present Illness - General Chief Complaint: Pain Stated Complaint: ABD PAIN Time Seen by Provider: 10/18/19 11:42 History Source: Patient Exam Limitations: No Limitations, Clinical Condition - History of Present Illness Initial Comments: Macey Saunders is a 54 yo F w a pmh of "colonic inertia" s/p colectomy [because of atonic colon? by Dr Shrestha at [facility] 2010], SBO in 2010 requiring surgery, mesenteric ischemia in 2014 requiring surgery, breast CA s/p R mast ectomy and lumpectomy, cervical cancer s/p surgery, HTN, and anxiety presents to the [facility] er with severe left sided abdominal pain worst in the LLQ. The patient states she has been having watery diarrhea since August, worsening left sided abdominal pain for the past 3 weeks, and severe abdominal pain for the past 3 days. She has tried hard to avoid coming into the hospital for this but the pain became too severe this morning so she came in to be evaluated. Denies fevers, nausea, vomiting. Denies chest pain, SOB, difficulty breathing, numbness, tingling, headache, blurry vision, bloody vomit or diarrhea. PCP: Hilary Lassiter Surgeon: Dr Shrestha at [facility] Social Hx: Denies smoking, drinking, or other substance usage Allergies: Ketorolac and colchicine PSH: Colectomy, SBO surgery, mesenteric ischemia surgery, multiple other abdominal and orthopedic surgeries Past History - Past Medical History Allergies/Adverse Reactions: Allergies Allergy/AdvReac Type Severity Reaction Status Date / Time ketorolac tromethamine Allergy Intermediate Rash Verified 10/18/19 12:27 [From Toradol] oxycodone Allergy Intermediate Itching Verified 10/18/19 12:27 colchicine Allergy Verified 10/18/19 12:27 Home Medications: Ambulatory Orders Venlafaxine HCl ER [Effexor Xr -] 150 mg PO DAILY 01/09/17 Pregabalin [Lyrica -] 150 mg PO DAILY 05/27/18 Amlodipine Besylate 5 mg PO DAILY #90 tablet 06/26/19 Diazepam [Valium] 2 mg PO TID PRN #24 tablet MDD 3 06/26/19 Oxycodone HCl/Acetaminophen [Percocet 5-325 mg Tablet] 1 - 2 tab PO PRN PRN #26 tablet MDD 10 06/26/19 Zolpidem Tartrate [Ambien] 5 mg PO HS PRN #30 tablet MDD 1 06/26/19 Cancer: Yes (rt breast,cervical ca) COPD: No - Surgical History Abdominal Surgery: Yes (COLON SURGERY;SBO,MESENTERIC ISCHEMIA) - Immunization History Immunization Up to Date: Yes - Psycho Social/Smoking Cessation Hx Smoking Status: No Smoking History: Never smoked Have you smoked in the past 12 months: No Number of Cigarettes Smoked Daily: 0 If you are a former smoker, when did you quit?: 20 years Hx Alcohol Use: No Drug/Substance Use Hx: No Substance Use Type: None Hx Substance Use Treatment: No Review of Systems - Review of Systems Able to Perform ROS?: Yes Comments:: CONSTITUTIONAL: Absent: fever, no chills, no fatigue EYES: Absent: visual changes ENT: Absent: ear pain, no sore throat CARDIOVASCULAR: Absent: chest pain, no palpitations RESPIRATORY: Absent: cough, no SOB GI: Present: abdominal pain, nausea, diarrhea Absent: no vomiting, no constipation GENITOURINARY: Absent: dysuria, no frequency, no hematuria MUSKULOSKELETAL: Absent: back pain, no arthralgia, no myalgia SKIN: Absent: rash NEURO: Absent: headache *Physical Exam - Vital Signs Last Vital Signs Temp Pulse Resp BP Pulse Ox 98.1 F 99 H 18 145/95 100 10/18/19 10:35 10/18/19 10:35 10/18/19 10:35 10/18/19 10:35 10/18/19 10:35 - Physical Exam GENERAL: Patient is clenched over in the bed screaming in severe pain. Severe apparent distress. HEENT: Normocephalic, atraumatic. PERRL, EOM intact. CARDIOVASCULAR: Tachycardic rate. Normal S1, S2. Regular rhythm. PULMONARY: No evidence of respiratory distress. Lungs clear to auscultation bilaterally. No wheezing, rales or rhonchi. ABDOMEN: Normal bowel sounds. The patient is guarding. There is no rebound. Severe left upper, mid and lower tenderness to palpation. Pain appears to be the worst immediately lateral to the left shweta-umbilical region. EXTREMITIES: Normal ROM in all four extremities. No gross deformities. SKIN: Warm, dry. No rash NEUROLOGICAL: No focal neurological deficits. ED Treatment Course - LABORATORY CBC & Chemistry Diagram: 10/18/19 12:11 10/18/19 12:11 - RADIOLOGY Radiograph Interpretation: CTA: Abdomen/pelvis CT radiography (without and with contrast) Clinical information: evaluate for mesenteric ischemia; left abdominal pain Multiplanar, multiphase imaging was performed following the intravenous administration of nonionic contrast in addition to preliminary noncontrast scanning. Enteric contrast was not administered. No evidence of pneumoperitoneum, pneumatosis, portal venous air/gas, abscess, free intraperitoneal fluid or bowel obstruction. Several mildly dilated small bowel loops are seen within the central and left lateral thirds of the mid abdomen with a 2.9 cm maximum luminal diameter. There is no definite associated wall edema or perienteric edema/fluid. The celiac artery as well as the superior and inferior mesenteric arteries appear patent without discrete stenosis or obvious intraluminal defect. There is no CT evidence of portomesenteric venous thrombosis. Stable 1.5 cm enhancing right hepatic lobe lesion in comparison to a CT exam of 05/16/2017 possibly representing a hemangioma. Stable subcentimeter right hepatic lobe cyst. There is probable diffuse fatty infiltration of the liver. As on the 2017 CT exam the patient is status post subtotal colectomy with apparent ileorectal anastomosis. The spleen, pancreas, gallbladder, adrenal glands and kidneys demonstrate no discrete pathology. Small left renal cortical cyst. There is no aortic aneurysm. Interval slight enlargement of a left periaortic retroperitoneal lymph node is noted with a current diameter of 0.8 cm. No obvious acute osseous pathology is seen. Impression: No CT evidence of mesenteric ischemia. Early acute mesenteric ischemia may not be demonstrable on CT. Similar to a 2017 CT exam several mildly dilated small bowel loops are seen within the central and left lateral thirds of the mid abdomen which could be on the basis of a mild ileus versus mild/early small bowel obstruction. Correlation with close follow-up radiography or CT is suggested. Stable 1.5 cm right hepatic lobe enhancing lesion possibly representing a hemangioma. Probable diffuse hepatic steatosis. As on the prior exam the patient is status post subtotal colectomy with an apparent ileorectal anastomosis. Interval slight enlargement of a left periaortic retroperitoneal lymph node is seen. Correlation with 3 month follow-up CT is suggested to document stability and lack of developing pathology. Medical Decision Making - Medical Decision Making Macey Saunders is a 54 yo F w a pmh of "colonic inertia" s/p colectomy [because of atonic colon? by Dr Shrestha at [facility] 2010], SBO in 2010 requiring surgery, mesenteric ischemia in 2014 requiring surgery, breast CA s/p R mastectomy and lumpectomy, cervical cancer s/p surgery, HTN, and anxiety presents to the [facility] er with severe left sided abdominal pain worst in the LLQ. The patient states she has been having watery diarrhea since August, worsening left sided abdominal pain for the past 3 weeks, and severe abdominal pain for the past 3 days. She has tried hard to avoid coming into the hospital for this but the pain became too severe this morning so she came in to be evaluated. Vital Signs Temp Pulse Resp BP Pulse Ox 98.1 F 99 H 18 145/95 100 10/18/19 10:35 10/18/19 10:35 10/18/19 10:35 10/18/19 10:35 10/18/19 10:35 DDx IBNLT: mesenteric ischemia, ischemic gut, SBO, diverticulitis, electrolyte/metabolic disturbance, anemia Plan: labs, EKG, Abdominal CT w/ con vs CTA, analgesia, IV hydration, likely surgical consult and admission. Labs: Mildly low mag and potassium - repleting EKG: NS rate of 75, narrow complexes, normal axis, no hypertrophy, no ST elevations or depressions, septal TWI's, QTc 475, MN 126 CT: Abdomen/pelvis CT radiography (without and with contrast) Clinical information: evaluate for mesenteric ischemia; left abdominal pain Multiplanar, multiphase imaging was performed following the intravenous administration of nonionic contrast in addition to preliminary noncontrast scanning. Enteric contrast was not administered. No evidence of pneumoperitoneum, pneumatosis, portal venous air/gas, abscess, free intraperitoneal fluid or bowel obstruction. Several mildly dilated small bowel loops are seen within the central and left lateral thirds of the mid abdomen with a 2.9 cm maximum luminal diameter. There is no definite associated wall edema or perienteric edema/fluid. The celiac artery as well as the superior and inferior mesenteric arteries appear patent without discrete stenosis or obvious intraluminal defect. There is no CT evidence of portomesenteric venous thrombosis. Stable 1.5 cm enhancing right hepatic lobe lesion in comparison to a CT exam of 05/16/2017 possibly repre senting a hemangioma. Stable subcentimeter right hepatic lobe cyst. There is probable diffuse fatty infiltration of the liver. As on the 2017 CT exam the patient is status post subtotal colectomy with apparent ileorectal anastomosis. The spleen, pancreas, gallbladder, adrenal glands and kidneys demonstrate no discrete pathology. Small left renal cortical cyst. There is no aortic aneurysm. Interval slight enlargement of a left periaortic retroperitoneal lymph node is noted with a current diameter of 0.8 cm. No obvious acute osseous pathology is seen. Impression: No CT evidence of mesenteric ischemia. Early acute mesenteric ischemia may not be demonstrable on CT. Similar to a 2017 CT exam several mildly dilated small bowel loops are seen within the central and left lateral thirds of the mid abdomen which could be on the basis of a mild ileus versus mild/early small bowel obstruction. Correlation with close follow-up radiography or CT is suggested. Stable 1.5 cm right hepatic lobe enhancing lesion possibly representing a hemangioma. Probable diffuse hepatic steatosis. As on the prior exam the patient is status post subtotal colectomy with an apparent ileorectal anastomosis. Interval slight enlargement of a left periaortic retroperitoneal lymph node is seen. Correlation with 3 month follow-up CT is suggested to document stability and lack of developing pathology. Re-assessment: Patient has persistent abdominal pain despite multiple rounds of Morphine - Giving patient hydromorphone MDM: Patient has an SBO and we have no surgeon ham boner today at [facility]. We considered sending patient over to [facility] however the patient requested to be sent over to [facility] because all of her doctors are there and Dr. Shrestha has operated on her in the past. She specifically requested to be sent over to the service of Dr. Shrestha at [facility] - I called Dr. Shrestha who says he will accept the patient and we should call the transfer center to arrange transport over to [facility] Disposition: Transfer to [facility] - Initiating transfer to [facility] through transfer center - Face sheet to be faxed to - [phone] - Dr. Shrestha - accepting physician over at [facility] [place] - CD copy of CTA requested from radiology for copy to send with transfer 10/18/19 19:57 I spoke with the Transfer center at 6:30 pm asking for an ETA and they had no update for me. They said they would call back [phone] when they have an ETA 10/18/19 20:27 Called up transfer center for ETA - Aba told me ambulance is on route and should be here in 15 minutes at 8:45 Ambulance took patient out of ER at 9 pm to [facility] Discharge - Discharge Information Problems reviewed: Yes Clinical Impression/Diagnosis: SBO (small bowel obstruction) Abdominal pain Qualifiers: Abdominal location: left lower quadrant Qualified Code(s): R10.32 - Left lower quadrant pain Condition: Stable Disposition: TRANSFER ACUTE CARE/OTHER HOSP - Admission No - Follow up/Referral Referrals: Hilary Kumar MD [Primary Care Provider] - - Patient Discharge Instructions - Post Discharge Activity Work/Back to School Note: Back to Work - Transfer to Acute Care Facility Receiving Facility Name: [facility] ([facility]) ([facility]) Accepting Physician:: Dr. Shrestha Transfer Comment: Patient with SBO, Dr. Shrestha operated on this patient in the past.
[2019-10-18] MEDS ORDERED: ONDANSETRON 4 MG/2 ML VIAL IVPUSH ONE (12:06)
[2019-10-18] MEDS ORDERED: morphine SULFATE 4 MG/ML VIAL ONE ×2 (12:17→14:13)
[2019-10-18] MEDS ORDERED: ACETAMINOPHEN INJECTION 100 ML IVPB ONE (12:17)
[2019-10-18] MEDS ORDERED: ONDANSETRON 4 MG/2 ML VIAL ONE (12:29)
[2019-10-18] MEDS ORDERED: FAMOTIDINE 20 MG/50 ML IVPB 20 MG/50 ML MG IVPB ONE ×2 (12:29→12:30)
[2019-10-18 12:45] LABS: BASO % 1.5 % (0-2.0); EOS % 1.7 % (0-4.5); HEMATOCRIT 41.8 % (32.4-45.2); HEMOGLOBIN 14.3 GM/dL (10.7-15.3); LYMPH % 40.5 % (8-40); MCH 29.8 pg (25.7-33.7); MCHC 34.2 g/dl (32.0-36.0); MEAN CELL VOLUME 87.3 fl (80-96); MEAN PLT VOLUME 9.4 fl (7.5-11.1); NEUT % 50.3 % (42.8-82.8); PLATELET COUNT 314 K/MM3 (134-434); RBC 4.79 M/mm3 (3.60-5.2); WHITE BLOOD COUNT 8.6 K/mm3 (4.0-10.0)
[2019-10-18 13:02] LABS: INR 1.18 (0.83-1.09)
[2019-10-18 13:05] LABS: ACTIVATED PTT 37.6 SECONDS (25.2-36.5)
[2019-10-18 13:16] LABS: ALBUMIN 4.1 g/dl (3.4-5.0); BLOOD UREA NITROGEN 12.1 mg/dL (7-18); CALCIUM 10.1 mg/dL (8.5-10.1); CREATININE 0.9 mg/dL (0.55-1.3); MAGNESIUM 1.7 mg/dL (1.8-2.4); PHOSPHOROUS 1.3 mg/dL (2.5-4.9); POTASSIUM 3.4 mmol/L (3.5-5.1); TOT PROT 8.2 g/dl (6.4-8.2)
[2019-10-18] MEDS ORDERED: MAGNESIUM SULF 50% (8.12 MEQ/2 ML-1 GM VIAL) IVPB ONE (13:20)
--- NOTE | 2019-10-18 14:03 | PDOC ---
Documentation entered by Isela Moreno SCRIBE, acting as scribe for Poornima Woody MD. Poornima Woody MD: This documentation has been prepared by the Tiffanie bell Nirvannie, SCRIBE, under my direction and personally reviewed by me in its entirety. I confirm that the documentation accurately reflects all work, treatment, procedures, and medical decision making performed by me. Attending Attestation - Resident Resident Name: Dennis Martinez - ED Attending Attestation I have performed the following: I have examined & evaluated the patient, The case was reviewed & discussed with the resident, I agree w/resident's findings & plan, Exceptions are as noted - HPI HPI: 10/18/19 13:03 The patient is a 54 year old female, with a significant past medical history of colonic inertia" s(/p colectomy because of atonic colon? by Dr Shrestha at [facility] 2010), SBO ( requiring surgery), mesenteric ischemia (2014 requiring surgery), breast cancer (s/p R mastectomy and lumpectomy), cervical cancer( s/p surgery), HTN, and anxiety, who presents to the emergency department with 3 days of left sided abdominal pain worsened in the left-sided abdominal pain worse in the LLQ and associated NBNB watery diarrhea worsened in the past 3 weeks. Allergies: Ketorolac, oxycodone, and colchicine Past surgical history: Colectomy, SBO surgery, mesenteric ischemia surgery, multiple other abdominal and orthopedic surgeries Social history: Nonsmoker. Denies EtOH use and recreational drug use. Primary Care Physician: Hilary Lassiter Surgeon: Dr Shrestha at [facility] - Physicial Exam PE: GENERAL: Awake, alert, and fully oriented, appears uncomfortable HEAD: No signs of trauma EYES: PERRLA, EOMI, sclera anicteric, conjunctiva clear ENT: Auricles normal inspection, hearing grossly normal, nares patent, oropharynx clear without exudates. Dry mucosa NECK: Normal ROM, supple, no lymphadenopathy, JVD, or masses LUNGS: Breath sounds equal, clear to auscultation bilaterally. No wheezes, and no crackles HEART: Regular rate and rhythm, normal S1 and S2, no murmurs, rubs or gallops ABDOMEN: Soft, +LUQ/LLQ tenderness, normoactive bowel sounds. +Guarding, no rebound. No masses EXTREMITIES: Normal range of motion, no edema. No clubbing or cyanosis. No cords, erythema, or tenderness NEUROLOGICAL: Cranial nerves II through XII grossly intact. Normal speech, no rmal gait. Motor and sensation intact SKIN: Warm, dry, normal turgor, no rashes or lesions noted. - Medical Decision Making Pt with significant past abdominal surgical history (prior ischemic bowel, SBO) presents with severe L-sided abd pain, with tenderness and fullness on L side. Lactate elevated. Given pain medication and IV fluids in ED, CTA to r/o ischemic bowel vs SBO vs infectious process. Anticipate admission. 10/18/19 17:53 Late entry. Pt found to have dilated loops of bowel on CTA, does not appear to be mesenteric ischemia at this point, but may be ileus vs early SBO. Will contact her surgeon at [facility], as she has extensive surgical history, and there is no general surgeon cardiology consultants at this hospital today.
[2019-10-18] MEDS ORDERED: MAGNESIUM 1GM/D5W - 1 GM/100 ML IVPB IVPB ONE (14:46)
[2019-10-18] MEDS ORDERED: POTASSIUM CHLORIDE TABS 20 MEQ TABLET.ER (FP) PO ONE ×2 (15:26→15:46)
[2019-10-18] MEDS ORDERED: SODIUM CHLORIDE 0.9% 500 ML INFUS.BAG IV ONE (15:47)
[2019-10-18] MEDS ORDERED: HYDROmorphone HCL CARPU-JECT 2 MG/1 ML DISP.SYRIN IVPUSH ONE (17:37)
[2019-10-18] MEDS ORDERED: NAPH,MB-DB/K PH,MBDB POWDER PACKET PO ONE (17:56)
[2019-10-18] MEDS ORDERED: HYDROmorphone HCl 2 MG/ML VIAL ONE (18:13)
[2019-10-18 22:34] VITALS: BP 118/85; PULSE 78; TEMP 98.9
--- NOTE | 2019-10-19 10:30 | EKG ---
Test Reason : Blood Pressure : / mmHG Vent. Rate : 075 BPM Atrial Rate : 075 BPM P-R Int : 126 ms QRS Dur : 090 ms QT Int : 426 ms P-R-T Axes : 039 000 -09 degrees QTc Int : 475 ms POOR DATA QUALITY, INTERPRETATION MAY BE ADVERSELY AFFECTED NORMAL SINUS RHYTHM T WAVE ABNORMALITY, CONSIDER ANTERIOR ISCHEMIA ABNORMAL ECG Confirmed by Mukund De La Cruz MD ([id number]) on 10/19/2019 10:30:04 AM Referred By: Confirmed By:Mukund De La Cruz MD
== END 2019-10-18 21:50 | disposition short-term general hospital (02) ==
LOC: JER 10:35
PROC: 3E0337Z Introduction of Electrolytic and Water Balance Substance into Peripheral Vein, Percutaneous Approach (ICD-10-PCS; principal; 2019-10-18)
PROC: 3E033GC Introduction of Other Therapeutic Substance into Peripheral Vein, Percutaneous Approach (ICD-10-PCS; 2019-10-18)
PROC: 3E0337Z Introduction of Electrolytic and Water Balance Substance into Peripheral Vein, Percutaneous Approach (ICD-10-PCS; 2019-10-18)
PROC: 3E033NZ Introduction of Analgesics, Hypnotics, Sedatives into Peripheral Vein, Percutaneous Approach (ICD-10-PCS; 2019-10-18)
DX: R10.32 Left lower quadrant pain (principal); K56.609 Unspecified intestinal obstruction, unspecified as to partial versus complete obstruction; Z88.6 Allergy status to analgesic agent; Z88.8 Allergy status to other drugs, medicaments and biological substances; Z85.3 Personal history of malignant neoplasm of breast; Z87.891 Personal history of nicotine dependence
CPT/HCPCS: 36415; 74174-TC; 80053; 83605; 83690; 83735; 84100; 84484; 85025; 85610; 85730; 86850; 86900; 86901; 93005; 93010; 99285-25; J0131; J7030

== ENCOUNTER 2020-02-28 09:22 | Day surgery (SDC) | payer BC, OTHER ==
[2020-02-25 14:24] VITALS: BMI 32.7
[2020-02-28 10:47] VITALS: TEMP 98
[2020-02-28 11:20] VITALS: BP 125/95; PULSE 83
--- NOTE | 2020-03-02 17:24 | PATH ---
Surgical Pathology Report Patient Name: JARRED POLLARD [facility]. Rec. #: [id number] /Age/Gender: 1965 (Age: 54) / F Account: [id number] Location: ASU-ENDOSCOPY Taken: 02/28/2020 Received: 02/28/2020 Reported: 03/02/2020 Physicians: Chris Hester M.D. Specimen(s) Received A: DUODENUM B: STOMACH Clinical History Colon screening, abdominal pain Postoperative diagnosis: Gastritis, hemorrhoids Final Diagnosis A. DUODENUM, BIOPSY: DUODENAL MUCOSA WITHOUT SIGNIFICANT PATHOLOGIC FINDINGS. B. STOMACH, BIOPSY: GASTRIC OXYNTIC MUCOSA WITH MILD CHRONIC GASTRITIS. IMMUNOHISTOCHEMICAL STAIN FOR H. PYLORI IS NEGATIVE. Positive and negative controls (internal if applicable) show appropriate results. Electronically Signed Kaye La M.D. Gross Description A. Received in formalin, labeled "biopsy duodenum" are 3 nichole, irregular portions of soft tissue ranging from 0.2-0.3 cm. in greatest dimension. The specimens are submitted in toto in one cassette. B. Received in formalin, labeled "biopsy stomach" is a nichole, irregular portion of soft tissue measuring 0.8 cm. in greatest dimension. The specimen is submitted in toto in one cassette. 02/28/2020 saudi02/28/2020
== END 2020-02-28 11:29 | disposition home or self-care (01) ==
LOC: JASU-ENDO 09:22
PROVIDERS: ATTEND Internal Medicine Gastroenterology
PROC: 0DB98ZX Excision of Duodenum, Via Natural or Artificial Opening Endoscopic, Diagnostic (ICD-10-PCS; 2020-02-28)
PROC: 0DB68ZX Excision of Stomach, Via Natural or Artificial Opening Endoscopic, Diagnostic (ICD-10-PCS; 2020-02-28)
PROC: 0DJD8ZZ Inspection of Lower Intestinal Tract, Via Natural or Artificial Opening Endoscopic (ICD-10-PCS; principal; 2020-02-28 09:30)
DX: Z12.11 Encounter for screening for malignant neoplasm of colon (principal); Z85.3 Personal history of malignant neoplasm of breast; Z90.49 Acquired absence of other specified parts of digestive tract; K64.8 Other hemorrhoids; K29.50 Unspecified chronic gastritis without bleeding; R10.84 Generalized abdominal pain
CPT/HCPCS: 43239; G0104; 88305-TC; 88342-TC

== ENCOUNTER 2020-06-27 08:04 | Inpatient (IN) | payer BC, OTHER ==
[2020-06-27] MEDS ORDERED: SODIUM CHLORIDE 1,000 ML IV STA (08:42)
[2020-06-27] MEDS ORDERED: FAMOTIDINE 20 MG/50 ML IVPB 20 MG/50 ML MG IVPB ONE ×2 (08:42→09:23)
[2020-06-27] MEDS ORDERED: ONDANSETRON 4 MG/2 ML VIAL IVPUSH ONE (08:42)
[2020-06-27] MEDS ORDERED: ACETAMINOPHEN 1000 MG/100 ML VIAL (NON FORMULARY) IVPB ONE (08:42)
[2020-06-27 09:18] VITALS: BMI 30.8
[2020-06-27] MEDS ORDERED: ACETAMINOPHEN INJECTION 100 ML IVPB ONE (09:22)
[2020-06-27 09:32] LABS: BASO % 0.5 % (0-2.0); HEMATOCRIT 38.9 % (32.4-45.2); HEMOGLOBIN 12.7 GM/dL (10.7-15.3); LYMPH % 21.7 % (8-40); MCH 29.2 pg (25.7-33.7); MCHC 32.7 g/dl (32.0-36.0); MEAN CELL VOLUME 89.6 fl (80-96); MEAN PLT VOLUME 8.4 fl (7.5-11.1); MONO % 2.8 % (3.8-10.2); PLATELET COUNT 306 K/MM3 (134-434); RBC 4.34 M/mm3 (3.60-5.2); RDW 14.5 % (11.6-15.6); WHITE BLOOD COUNT 9.9 K/mm3 (4.0-10.0)
[2020-06-27 09:33] LABS: INR 2.09 (0.83-1.09); PROTHROMBIN TIME (PATIENT) 24.8 SEC (9.7-13.0)
[2020-06-27 09:44] LABS: POTASSIUM 3.7 mmol/L (3.5-5.1)
[2020-06-27 09:46] LABS: ALBUMIN 3.3 g/dl (3.4-5.0); CALCIUM 8.7 mg/dL (8.5-10.1)
[2020-06-27 09:47] LABS: BLOOD UREA NITROGEN 13.4 mg/dL (7-18)
[2020-06-27 09:50] LABS: CREATININE 0.9 mg/dL (0.55-1.3)
[2020-06-27 09:51] LABS: BILIRUBIN,TOTAL 0.5 mg/dL (0.2-1); TOT PROT 7.7 g/dl (6.4-8.2)
[2020-06-27] MEDS ORDERED: LACTATED RINGERS SOLUTION 1000 ML INFUS.BAG IV ONE (10:00)
[2020-06-27] MEDS ORDERED: METOCLOPRAMIDE HCL INJECTION 10 MG/2 ML VIAL IVPUSH ONE (11:54)
[2020-06-27] MEDS ORDERED: DEXAMETHASONE SOD PHOSPHATE 4 MG/1 ML VIAL IVPUSH ONE (12:35)
[2020-06-27] MEDS ORDERED: METOCLOPRAMIDE HCL INJECTION 10 MG/2 ML VIAL ONE (14:15)
[2020-06-27] MEDS ORDERED: DEXAMETHASONE SOD PHOSPHATE 4 MG/1 ML VIAL ONE (14:16)
[2020-06-27] MEDS ORDERED: ONDANSETRON 4 MG/2 ML VIAL IVPB PRN (16:15)
[2020-06-27] MEDS ORDERED: ACETAMINOPHEN 325 MG TABLET (FP) PO PRN (16:15)
[2020-06-27] MEDS ORDERED: ALBUTEROL SO4 HFA INHALER IH PRN (16:15)
[2020-06-27] MEDS ORDERED: DEXTROSE 5%-NORMAL SALINE 1,000 ML IV SCH (16:15)
[2020-06-27] MEDS ORDERED: CEFTRIAXONE 1 GM in DEXTROSE 5%-WATER - 50 ML IVPB SCH (16:30)
[2020-06-27] MEDS ORDERED: CEFTRIAXONE 1 GM/50 ML BAG ONE (16:49)
[2020-06-27] MEDS ORDERED: FAMOTIDINE 20 MG TABLET ONE (21:50)
[2020-06-27] MEDS ORDERED: FAMOTIDINE 20 MG TABLET PO SCH (22:00)
[2020-06-27] MEDS ORDERED: ACETAMINOPHEN 325 MG TABLET (FP) ONE (22:23)
[2020-06-27 22:24] VITALS: BP 121/85; PULSE 97; TEMP 99.3
[2020-06-28] MEDS ORDERED: DEXAMETHASONE SOD PHOSPHATE 20 MG/5 ML VIAL IVPB SCH (10:00)
== END 2020-06-28 03:53 | disposition left against medical advice (07) | DRG 179 ==
LOC: JER 08:04 → JERBED 13:10
PROVIDERS: ADMIT Internal Medicine; ATTEND Internal Medicine
DX: U07.1 COVID-19 (principal); R09.02 Hypoxemia; R00.0 Tachycardia, unspecified; I10 Essential (primary) hypertension; Z85.3 Personal history of malignant neoplasm of breast; Z85.41 Personal history of malignant neoplasm of cervix uteri
CPT/HCPCS: 36415; 71045-TC-FY; 80053; 82728; 83615; 83880; 84484; 85025; 85610; 85730; 86140; 86769; 93005; 93010; 99285-25; C9803; J0131; U0003